=== PATIENT | male | born 1930 | race Caucasian/White ===

== ENCOUNTER 2017-04-25 11:16 | Inpatient (IN) ==
--- NOTE | 2017-04-25 12:35 | Emergency Department Report ---
Weakness HPI - General Chief complaint: Weakness Stated complaint: Weakness, dehydration, falls, no eating Time Seen by Provider: 04/25/17 12:10 Source: patient Mode of arrival: ambulatory Limitations: no limitations - History of Present Illness HPI Narrative: He presents to ER today for evaluation of generalized weakness. Has been having trouble with this for the last several days. Did see his PCP on and was diagnosed with a UTI. Was started on antibiotics which he has been taking. Has been weak at home and has had trouble getting around the house. Has fallen several times. Did get a chest xray, labs, and head CT on while at his PCP office. Is c/o right shoulder and elbow pain but did not have any imaging done . Has had a low grade temp at home and did vomit once this morning but otherwise has no other c/o. Uses a cane at home to get around. MD Complaint: generalized weakness Onset (ago): day(s) (3) Duration: constant Location: generalized Migration: none Severity: moderate Relieving factors: none Exacerbating factors: none Context: new medication Associated symptoms: fever/chills (low grade temp) - Related Data Home Medications Medication Instructions Recorded Confirmed Cyanocobalamin (Vitamin B-12) 1 tab PO DAILY #0 01/20/16 04/25/17 (Vitamin B-12) Glucosamine Sulfate Dipot Chlr 1,000 mg PO DAILY #0 01/20/16 04/25/17 [Glucosamine] Multivitamin [Multi-Day Vitamins] 1 tab PO DAILY #0 01/20/16 04/25/17 Phenytoin Sodium Extended 500 mg PO HS #0 01/20/16 04/25/17 Aspirin [Adult Low Dose Aspirin EC] 81 mg PO HS 04/25/17 04/25/17 Atorvastatin Calcium 20 mg PO DAILY 04/25/17 04/25/17 Calcium Carbonate 600 mg PO DAILY 04/25/17 04/25/17 Docusate Sodium [Stool Softener] 100 mg PO BID 04/25/17 04/25/17 Donepezil HCl [Aricept] 10 mg PO HS 04/25/17 04/25/17 Isosorbide Mononitrate ER [Imdur] 30 mg PO DAILY 04/25/17 04/25/17 Metoprolol Succinate 25 mg PO DAILY 04/25/17 04/25/17 Warfarin Sodium 9 mg PO SUWE 04/25/17 04/25/17 Warfarin Sodium 10 mg PO MOTUTHFRSA 04/25/17 04/25/17 cephALEXin [Cephalexin] 500 mg PO TID 04/25/17 04/25/17 Allergies Allergy/AdvReac Type Severity Reaction Status Date / Time No Known Drug Allergies Allergy Unknown Verified 04/25/17 11:31 Review of Systems Constitutional: Reports: fever (low grade), weakness ENT: Denies: ear pain, throat pain, congestion Cardiovascular: Denies: chest pain, palpitations, dyspnea on exertion Respiratory: Denies: cough, dyspnea, wheezes Gastrointestinal: Reports: vomiting. Denies: abdominal pain, nausea, diarrhea, constipation Integumentary: Denies: rash Neurological: Reports: weakness. 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 Syncope Yes Transient Ischemic Attacks ( Yes TIA) Cataracts Yes Dental Problems Yes Macular Degeneration Yes Angina Yes Coronary Artery Disease Yes Myocardial Infarction Yes Sleep Apnea Yes Ulcer Yes Hx Incontinence Yes Hx Urinary Tract Infection Yes Clotting Problems Yes Osteoarthritis Yes - Social History Smoking status: Never smoker Physical Exam - Limitations Limitations: no limitations - General General appearance: alert, in no apparent distress - Normal Exams: Neck:: Full range of motion, without adenopathy, JVD, bruits or thyromegaly Chest/Respirations:: Clear all banegas, with good airflow, and symmetry bilaterally Cardiovascular:: Regular rate and rhythm, without murmur or gallop, Pulses 2+ all extremities, capillary refill, <2 seconds all extremities Abdomen:: Bowel sounds positive, soft, non-tender, non-distended, no hepatosplenomegaly, masses or bruits noted Lymphatic:: No lymphadenopathy, or lymphedema noted Integumentary:: No rashes, hives, or bruising noted Neurological:: Patient is alert, and oriented Psychiatric:: Patient exhibits, appropriate attention, emotion and affect Course Vital Signs Temperature 98.5 F 04/25/17 11:20 Pulse Rate 88 04/25/17 11:20 Respiratory Rate 16 04/25/17 11:20 Blood Pressure 133/78 04/25/17 11:20 Pulse Oximetry 98 04/25/17 11:20 Temperature 98.7 F 04/25/17 13:04 Pulse Rate 87 04/25/17 13:04 Respiratory Rate 16 04/25/17 13:04 Blood Pressure 125/67 04/25/17 13:04 Pulse Oximetry 93 04/25/17 13:04 Weakness - MDM Narrative Medical decision making narrative: Labs and xrays today are all normal aside from INR of 3.77 which is trending down from when it was above 4. Did discuss this with patient and family. Family is concerned for his safety at home as he continues to fall and be weak. Did discuss this with Dr Fontanez and he will accept for admission at this time. - Differential Diagnosis Differential diagnosis: Likely: acute myocardial infarction, hypoglycemia, sepsis, dehydration (UTI) - Lab Data Attestation: I reviewed the patient's lab results. Result diagrams: 04/25/17 14:10 04/25/17 14:10 Lab Results 04/25/17 04/25/17 04/25/17 Range/Units 14:10 14:10 14:10 WBC 9.1 (4.5-11.0) T/MM3 RBC 3.99 L (4.50-5.90) M/MM3 Hgb 12.9 L (13.5-17.5) GM/DL Hct 38.8 L (41-53) % MCV 97.2 (80-100) UM3 MCH 32.3 (26-34) UUG MCHC 33.2 (31-37) GM/DL RDW Std Deviation 40.8 (36.9-50.2) FL Plt Count 218 (130-400) T/MM3 MPV 10.5 (9.4-12.4) UM3 Immature Gran % (Auto) 0.2 (0.0-0.5) % Neut % (Auto) 69.4 H (33-66) % Lymph % (Auto) 19.3 L (23-45) % [place] % (Auto) 10.7 H (0-9.0) % Eos % (Auto) 0.3 (0-4) % Baso % (Auto) 0.1 (0-2) % Neut # 6.3 (1.8-7.7) T/MM3 Lymph # 1.8 (1-4.8) T/MM3 [place] # 1.0 H (0-0.8) T/MM3 Eos # 0.0 (0-0.5) T/MM3 Baso # 0.0 (0-0.2) T/MM3 Abs Immat Gran (auto) 0.02 (0.00-0.03) T/MM3 INR 3.77 H (0.99-1.21) Turbidity < 20 (0-20) Sodium 142 (134-144) MEQ/L Potassium 3.5 L (3.6-5) MEQ/L Chloride 100 (98-107) MEQ/L Carbon Dioxide 31 H (22-30) MEQ/L Anion Gap 11 (5-15) MEQ/L BUN 13.0 (9-20) MG/DL Creatinine 0.8 (0.8-1.5) MG/DL GFR Calculation 92 BUN/Creatinine Ratio 16 (6-26) RATIO Glucose 123 H (75-110) MG/DL Calculated Osmolality 274 (261-280) MOSM/KG Calcium 8.8 (8.4-10.2) MG/DL Total Bilirubin 1.00 (0.20-1.30) MG/DL Icterus Index < 2 (0-7) AST 174 H (17-59) U/L ALT 96 H (21-72) U/L Alkaline Phosphatase 150 H (38-126) U/L Troponin I 0.033 (0-0.12) ng/ml Total Protein 6.9 (6.3-8.2) G/DL Albumin 3.9 (3.5-5.0) G/DL Globulin 3.0 (2.4-3.6) G/DL Albumin/Globulin Ratio 1.3 (1.1-2.2) RATIO Specimen Hemolysis < 15 (0-25) Ur Collection Type Urine Color (YELLOW) Urine Clarity Urine pH (5.0-8.0) Ur Specific [place] (1.015-1.025) Urine Protein (NEGATIVE) Urine Glucose (UA) (NEGATIVE) Urine Ketones (NEGATIVE) Urine Occult Blood (NEGATIVE) Urine Nitrate (NEGATIVE) Urine Bilirubin (NEGATIVE) Urine Urobilinogen (NORMAL) EU/DL Ur Leukocyte Esterase (NEGATIVE) Urine RBC (0-3) /HPF Urine WBC (0-5) /HPF Ur Squamous Epith Cells Urine Bacteria (NEGATIVE) Ur Culture Indicated? 04/25/17 Range/Units 14:32 WBC (4.5-11.0) T/MM3 RBC (4.50-5.90) M/MM3 Hgb (13.5-17.5) GM/DL Hct (41-53) % MCV (80-100) UM3 MCH (26-34) UUG MCHC (31-37) GM/DL RDW Std Deviation (36.9-50.2) FL Plt Count (130-400) T/MM3 MPV (9.4-12.4) UM3 Immature Gran % (Auto) (0.0-0.5) % Neut % (Auto) (33-66) % Lymph % (Auto) (23-45) % [place] % (Auto) (0-9.0) % Eos % (Auto) (0-4) % Baso % (Auto) (0-2) % Neut # (1.8-7.7) T/MM3 Lymph # (1-4.8) T/MM3 [place] # (0-0.8) T/MM3 Eos # (0-0.5) T/MM3 Baso # (0-0.2) T/MM3 Abs Immat Gran (auto) (0.00-0.03) T/MM3 INR (0.99-1.21) Turbidity (0-20) Sodium (134-144) MEQ/L Potassium (3.6-5) MEQ/L Chloride (98-107) MEQ/L Carbon Dioxide (22-30) MEQ/L Anion Gap (5-15) MEQ/L BUN (9-20) MG/DL Creatinine (0.8-1.5) MG/DL GFR Calculation BUN/Creatinine Ratio (6-26) RATIO Glucose (75-110) MG/DL Calculated Osmolality (261-280) MOSM/KG Calcium (8.4-10.2) MG/DL Total Bilirubin (0.20-1.30) MG/DL Icterus Index (0-7) AST (17-59) U/L ALT (21-72) U/L Alkaline Phosphatase (38-126) U/L Troponin I (0-0.12) ng/ml Total Protein (6.3-8.2) G/DL Albumin (3.5-5.0) G/DL Globulin (2.4-3.6) G/DL Albumin/Globulin Ratio (1.1-2.2) RATIO Specimen Hemolysis (0-25) Ur Collection Type Urine, clean catch Urine Color [place] (YELLOW) Urine Clarity Sl cloudy Urine pH 5.0 (5.0-8.0) Ur Specific [place] 1.020 (1.015-1.025) Urine Protein 2+ A (NEGATIVE) Urine Glucose (UA) Negative (NEGATIVE) Urine Ketones Negative (NEGATIVE) Urine Occult Blood 3+ A (NEGATIVE) Urine Nitrate Negative (NEGATIVE) Urine Bilirubin 1+ A (NEGATIVE) Urine Urobilinogen 2.0 (NORMAL) EU/DL Ur Leukocyte Esterase Trace A (NEGATIVE) Urine RBC 1-3 (0-3) /HPF Urine WBC 10-20 H (0-5) /HPF Ur Squamous Epith Cells 0-5 Urine Bacteria 1+ H (NEGATIVE) Ur Culture Indicated? Cult not indicated - Radiology Data Attestation: I reviewed the patient's radiology results. Right shoulder: no acute bony abnormality Right elbow: no acute bony abnormality Chest xray: No acute cardiopulmonary process Disposition Clinical Impression: Weakness Urinary tract infection Qualifiers: Urinary tract infection type: acute cystitis Hematuria presence: without hematuria Qualified Code(s): N30.00 - Acute cystitis without hematuria Disposition: 02 To OBS [facility] Condition: Stable Prescriptions: No Action Phenytoin Sodium Extended 500 mg PO HS #0 Multivitamin [Multi-Day Vitamins] 1 tab PO DAILY #0 Glucosamine Sulfate Dipot Chlr [Glucosamine] 1,000 mg PO DAILY #0 Cyanocobalamin (Vitamin B-12) (Vitamin B-12) 1 tab PO DAILY #0 Aspirin [Adult Low Dose Aspirin EC] 81 mg PO HS Docusate Sodium [Stool Softener] 100 mg PO BID Atorvastatin Calcium 20 mg PO DAILY cephALEXin [Cephalexin] 500 mg PO TID Metoprolol Succinate 25 mg PO DAILY Donepezil HCl [Aricept] 10 mg PO HS Warfarin Sodium 9 mg PO SUWE Calcium Carbonate 600 mg PO DAILY Isosorbide Mononitrate ER [Imdur] 30 mg PO DAILY Warfarin Sodium 10 mg PO NICOLASAUTHFR Referrals: Trinidad Solitario DO [Family Provider] - Time of Disposition: 15:23 - Seen By: midlevel
[2017-04-25] MEDS ORDERED: CEFTRIAXONE 1,000 MG in D5W 25 ML IV SCH (16:00)
[2017-04-25] MEDS ORDERED: HYDROCODONE/APAP 5mg/325mg TABLET PO ONE (16:48)
--- NOTE | 2017-04-25 18:29 | History & Physical Report ---
History of Present Illness Date: 04/25/17 Chief complaint: Fall at home with head and R arm trauma. HPI: at bedside gave most of the history. Pt has been getting weaker and weaker gradually and has had several episodes of fall, that have increased in frequency the last 3 days. Pt was found to have a UTI recently and was getting PO antibiotics but his weakness got worse. Today he had a fall with head trauma (No LOC) and also R arm trauma. 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 states he has H.O TIA's and has been on Warfarin, last 3 INR were all high, attributted to the antibiotics. He states he has severe R arm pain (can't move it) he is immobilized. X rays did not show an obvious fracture. CT brain - no bleed. Pt was admitted for treatment - to avoid falls at home and will probably need rehab. he is awake alert, oriented x 3 coherent well perfused. Review of Systems - Constitutional Constitutional: Present: anorexia, fatigue, malaise - EENMT Eyes: Present: other Ears: Present: as per HPI (Eye - Scarred L eye - Balance not tested. Gait not tested. ) - Cardiovascular Cardiovascular: Present: edema, heart murmur. Absent: chest pain, palpitations , syncope, orthopnea Vascular: Present: pedal edema - Respiratory Respiratory: Present: as per HPI - Gastrointestinal Gastrointestinal: Present: as per HPI - Genitourinary Genitourinary: Present: as per HPI - Musculoskeletal Musculoskeletal: Present: as per HPI - Integumentary/Breasts Integumentary: Present: as per HPI. Absent: rash - Neurological Neurological: Present: abnormal gait Neurological Comments: Unsteady gait with increased falls recently. 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 - Social History Smoking status: Former smoker Substance use type: does not use Alcohol intake frequency: does not drink Current occupational exposures/hazards: No Does patient use chewing tobacco?: No Current residence: Apartment/Private Home (With his .) Medications Home Medications Medication Instructions Recorded Confirmed Type Cyanocobalamin (Vitamin B-12) 1 tab PO DAILY #0 01/20/16 04/25/17 History (Vitamin B-12) Glucosamine Sulfate Dipot Chlr 1,000 mg PO DAILY #0 01/20/16 04/25/17 History [Glucosamine] Multivitamin [Multi-Day Vitamins] 1 tab PO DAILY #0 01/20/16 04/25/17 History Phenytoin Sodium Extended 500 mg PO HS #0 01/20/16 04/25/17 History Aspirin [Adult Low Dose Aspirin EC] 81 mg PO HS 04/25/17 04/25/17 History Atorvastatin Calcium 20 mg PO DAILY 04/25/17 04/25/17 History Calcium Carbonate 600 mg PO DAILY 04/25/17 04/25/17 History Docusate Sodium [Stool Softener] 100 mg PO BID 04/25/17 04/25/17 History Donepezil HCl [Aricept] 10 mg PO HS 04/25/17 04/25/17 History Isosorbide Mononitrate ER [Imdur] 30 mg PO DAILY 04/25/17 04/25/17 History Metoprolol Succinate 25 mg PO DAILY 04/25/17 04/25/17 History Warfarin Sodium 9 mg PO SUWE 04/25/17 04/25/17 History Warfarin Sodium 10 mg PO MOTUTHFRSA 04/25/17 04/25/17 History cephALEXin [Cephalexin] 500 mg PO TID 04/25/17 04/25/17 History Allergies Allergy/AdvReac Type Severity Reaction Status Date / Time No Known Drug Allergies Allergy Unknown Verified 04/25/17 11:31 Exam Vital Signs: Temp Pulse Resp BP Pulse Ox 98.7 F 73 18 135/66 96 04/25/17 17:27 04/25/17 17:40 04/25/17 17:40 04/25/17 17:40 04/25/17 17:40 Telemetry Rhythm: Sinus Rhythm Height: 5 ft 9 in Weight: 100.8 kg Body Mass Index: 32.8 - Constitutional Present: mild distress, obese Comments: Due to pain - Routine Neck Exam Present: supple. Absent: JVD, carotid bruit - Routine Respiratory Exam Present: CTA bilaterally. Absent: accessory muscle use - Routine Cardiovascular Exam Present: RRR, murmur Comments: Systolic murmur at the aortic foci. - Routine Abdominal Exam Present: soft, non distended, non tender - Routine Extremities Exam Present: edema. Absent: cyanosis, clubbing - Routine Neurological Exam Present: alert, oriented X3 - Routine Psychiatric Exam Present: normal affect, cooperative Results - Labs CBC & Chem 7: 04/25/17 14:10 04/25/17 14:10 Assessment and Plan Assessment and Plan: Mr Zepeda is a 86 YO male with H.O Inoperable CAD, weakness with recurrent falls that have increased over the last week. He has had many falls and is at risk of a fracture. His head CT showed no bleed. Pt is Coagulopathic so will hold his warfarin for now. Will place pt on fall precautions for now. Do neurochecks Qshift. Will be rechecking his R arm, at this time he has pain but distal motor function and perfussion is preserved. He can tolerate passive motion of his elbow and his shoulder. Diagnosis 1) Global weakness, due multiple co-morbidities, including inoperable CAD ( Unknown LVEF at this time) and now UTI. - Will change antibiotic to IV Rocephin which has better coverage for UTI. Pt has no symptoms suggestive of bacteremia or sepsis. - Keep pt on telemetry - Fall precautions - Neurochecks Q8H x 3 - May need Ortho evaluation Thursday for his R arm. 2) Coagulopathy, in a pt that takes Warfarin for recurrent TIA's. - Check INR in the AM - Continue holding warfarin. 3) Seizure dissorder ? Not sure why pt is on Dilantin, but high levels would increase falls, so will check a level. 4) H/O CAD - INOPERABLE. - Continue BB, ASA, Imdur. 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 6) H/O Dementia. - Will check basic workup for dementia. 7) Code status - PT IS FULL CODE. Sepsis Assessment - Evaluation Sepsis screening result: No Definite Risk Hospital Course Summary Disclaimer: The visit summary below is not to be considered part of the above Progress Note.
[2017-04-25] MEDS ORDERED: ATORVASTATIN 20 MG TABLET PO SCH (18:30)
[2017-04-25] MEDS: CEFTRIAXONE 1 G in NS 100 ML IV SCH (18:57)
[2017-04-25] MEDS: ISOSORBIDE MONONITRATE ER 30 MG TABLET PO SCH (19:21)
[2017-04-25] MEDS: CALCIUM CARBONATE 600 MG TABLET PO SCH (19:23)
[2017-04-25] MEDS: DOCUSATE SODIUM 100 MG CAPSULE PO SCH (21:14)
[2017-04-25] MEDS: PHENYTOIN 100 MG CAPSULE PO SCH (21:14)
[2017-04-25] MEDS: DONEPEZIL 10 MG TABLET PO SCH (21:14)
[2017-04-25] MEDS: HYDROCODONE/APAP 10 MG/325 MG TABLET PO PRN (21:14)
[2017-04-25] MEDS: ASPIRIN *EC* 81 MG TABLET PO SCH (21:14)
[2017-04-26] MEDS: HYDROCODONE/APAP 10 MG/325 MG TABLET PO PRN ×4 (01:12→20:37)
[2017-04-26] MEDS: HYDROMORPHONE 2 MG/ML INJECTION IVP PRN ×4 (03:09→23:50)
[2017-04-26] MEDS: SALINE FLUSH 10ml SYRINGE IVF PRN ×2 (04:46→23:58)
[2017-04-26] MEDS: DOCUSATE SODIUM 100 MG CAPSULE PO SCH ×2 (09:18→20:36)
[2017-04-26] MEDS: ISOSORBIDE MONONITRATE ER 30 MG TABLET PO SCH (09:18)
[2017-04-26] MEDS: CALCIUM CARBONATE 600 MG TABLET PO SCH (09:18)
[2017-04-26] MEDS: MULTI-VITAMIN PLAIN TABLET PO SCH (09:18)
[2017-04-26] MEDS: METOPROLOL SUCCINATE (XL) 25mg TABLET PO SCH (09:18)
--- NOTE | 2017-04-26 09:31 | XRay Report ---
INDICATION: dyspnea PROCEDURE: CHEST 2-VIEWS UPRIGHT (PA & LAT) Encounter: Initial COMPARISON: March 27, 2009 FINDINGS: The lungs are clear without evidence of focal abnormal airspace opacity. There is no pleural effusion or pneumothorax. The heart size, mediastinal contours and pulmonary vascularity are within normal limits. There is no significant skeletal abnormality. IMPRESSION: No acute cardiopulmonary disease. .
--- NOTE | 2017-04-26 09:43 | XRay Report ---
Indication: right shoulder pain after falls today PROCEDURE: XR shoulder RT 2-3 views: Encounter: Initial Comparison: None Findings: There is no acute fracture, dislocation or malalignment identified. Impression: No acute osseous abnormality. .
--- NOTE | 2017-04-26 09:44 | XRay Report ---
Indication: right elbow pain after falls today PROCEDURE: XR elbow RT min 3V: Encounter: Initial Comparison: None Findings: There is no acute fracture, dislocation or malalignment identified. Poor visualization of the radial head on the lateral views. Impression: No acute osseous abnormality. .
--- NOTE | 2017-04-26 12:01 | Progress Note ---
Subjective: Pt states he is feeling well except for pain on his R arm. he is able to tolerate passive ROM on his elbow and less on his shoulder. he is very tender on palpation of the shoulder. Has H.O Rotator cuff tear on the L side. No new falls reported. Objective Vital signs: Temp Pulse Resp BP Pulse Ox 97.5 F 86 18 132/66 95 04/26/17 07:54 04/26/17 10:20 04/26/17 07:54 04/26/17 10:20 04/26/17 07:54 Rhythm: Normal Sinus Rhythm Weight: 101.5 kg - Constitutional Present: mild distress, obese - Routine HEENT Exam Head: Present: normocephalic Comments: Pt has lost his L eye to "Spinal meningitis" at age 7. He has evidence of trauma on his scalp. Oral mucosas moist. - Routine Respiratory Exam Present: CTA bilaterally - Routine Cardiovascular Exam Present: RRR - Routine Abdominal Exam Present: soft, non distended, non tender - Routine Extremities Exam Present: edema. Absent: cyanosis, clubbing - Routine Musculoskeletal Exam Musculoskeletal: no clubbing or cyanosis - Routine Neurological Exam Present: alert, oriented X3, moving all extremities - Routine Psychiatric Exam Present: normal affect, cooperative Results - Labs CBC & Chem 7: 04/26/17 04:59 04/26/17 04:59 Assessment and Plan Assessment and Plan: Mr Zepeda is a 86 YO male with H.O Inoperable CAD, weakness with recurrent falls that have increased over the last week. He has had many falls and is at risk of a fracture. He was admitted for this on 04/25. His head CT (No contrast) showed no bleed. Pt is Coagulopathic so will hold his warfarin for now. Will continue pt on fall precautions for now. He has pain on his R arm proximally - distal motor function and perfussion is preserved. He can tolerate passive motion of his elbow and his shoulder. Pain has decreased a bit since yesterday. Diagnosis 1) Global weakness, due multiple co-morbidities, including inoperable CAD ( Unknown LVEF at this time) + UTI. - WBC is normal, pt has no fever. - Blood and urine cultures are all pending. - Continue with Rocephin day # 2 - Keep pt on telemetry - having episodes of tachycardia. - Continue with fall precautions - May need Ortho evaluation Thursday for his R arm. 2) Coagulopathy, in a pt that takes Warfarin for recurrent TIA's. - Will check INR today at 14:00 - Continue holding warfarin. 3) No H/O Seizure dissorder ? Not sure why pt is on Dilantin, his level was 11.1 (04/26) - No toxicity. 4) H/O CAD - INOPERABLE. - Continue BB, ASA, Imdur. 5) H/O Dementia. - Will check TSH, B12, RPR, Ammonia. 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 7) Code status - PT IS FULL CODE. Sepsis Assessment - Evaluation Sepsis screening result: No Definite Risk Hospital Course Summary Disclaimer: The visit summary below is not to be considered part of the above Progress Note. Hospital Course: 04/26/17 12:14 Mr Zepeda is a 86 YO male with H.O Inoperable CAD, weakness with recurrent falls that have increased over the last week. He has had many falls and is at risk of a fracture. He was admitted for this on 04/25. His head CT (No contrast) showed no bleed. Pt is Coagulopathic so will hold his warfarin for now. Will continue pt on fall precautions for now. He has pain on his R arm proximally - distal motor function and perfussion is preserved. He can tolerate passive motion of his elbow and his shoulder. Pain has decreased a bit since yesterday. Plan is to have PT/OT evaluate him for a transfer eariler this coming week.
[2017-04-26] MEDS: CEFTRIAXONE 1 G in NS 100 ML IV SCH (17:33)
[2017-04-26] MEDS: ASPIRIN *EC* 81 MG TABLET PO SCH ×2 (20:36→21:36)
[2017-04-26] MEDS: PHENYTOIN 100 MG CAPSULE PO SCH ×2 (20:37→21:36)
[2017-04-26] MEDS: ATORVASTATIN 20 MG TABLET PO SCH ×2 (20:37→21:36)
[2017-04-26] MEDS: DONEPEZIL 10 MG TABLET PO SCH ×2 (20:38→21:35)
[2017-04-27] MEDS: HYDROCODONE/APAP 10 MG/325 MG TABLET PO PRN ×5 (01:00→23:21)
--- NOTE | 2017-04-27 10:22 | Orthopedic Consult Note ---
Orthopedic Consultation HPI - Consultation Info Consult Date: 04/27/17 Attending Physician: Virginia Kate MD. Consult Reason: joint pain (Right shoulder) - HPI Elements right lateral shoulder Injury: Yes (04/25/17 fall on right side) Pain: sharp Onset: sudden Radiating: No Severity: moderate Duration: several days How Often Does Pain Occur: constant Previous Surgery: No Previous Injury: No Aggrevated by: all activity Associated Symptoms: difficulties dressing, weakness, no chills, no warmth, no numbness Treatments Tried: rest, immobilization, pain medications X-ray Findings: Other (no acute injury to right shoulder or elbow. Poor visulization of radial head noted. AC DJD noted.) Recommendation: other (sling for comfort. Corticosteroid injection for pain control. The patient is not a surgical canidate. If pain continues CT scans may be helpful to R/O occult fx.) - History of Present Illness This is a pleasant 86 year old male who is admitted for progressive weakness over the last week and subsequent multiple falls. He was found to have a UTI and had been started on PO antibiotics. INR on admit was 3.77, presently 2.10. 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 He has also recently had a heart cath and was found to have multi vessel disease but was told that "he was not a surgical candidate". He did hit his head with his fall. CT of his head was negative for a bleed. Today his pain is located generally over the right shoulder. It is more point specific over the AC joint and lateral acromial border. Any movement causes him pain. Sling immobilization gives him some relief. He denies previous right shoulder surgery. He denies peripheral numbness or tingling. He feels he has no strength in the shoulder. 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 - Social History Smoking status: Former smoker Does patient use chewing tobacco?: No Current residence: Apartment/Private Home (With his .) Medications Home Medications Medication Instructions Recorded Confirmed Type Cyanocobalamin (Vitamin B-12) 1 tab PO DAILY #0 01/20/16 04/25/17 History (Vitamin B-12) Glucosamine Sulfate Dipot Chlr 1,000 mg PO DAILY #0 01/20/16 04/25/17 History [Glucosamine] Multivitamin [Multi-Day Vitamins] 1 tab PO DAILY #0 01/20/16 04/25/17 History Phenytoin Sodium Extended 500 mg PO HS #0 01/20/16 04/25/17 History Aspirin [Adult Low Dose Aspirin EC] 81 mg PO HS 04/25/17 04/25/17 History Atorvastatin Calcium 20 mg PO DAILY 04/25/17 04/25/17 History Calcium Carbonate 600 mg PO DAILY 04/25/17 04/25/17 History Docusate Sodium [Stool Softener] 100 mg PO BID 04/25/17 04/25/17 History Donepezil HCl [Aricept] 10 mg PO HS 04/25/17 04/25/17 History Isosorbide Mononitrate ER [Imdur] 30 mg PO DAILY 04/25/17 04/25/17 History Metoprolol Succinate 25 mg PO DAILY 04/25/17 04/25/17 History Warfarin Sodium 9 mg PO SUWE 04/25/17 04/25/17 History Warfarin Sodium 10 mg PO MOTUTHFRSA 04/25/17 04/25/17 History cephALEXin [Cephalexin] 500 mg PO TID 04/25/17 04/25/17 History Allergies Allergy/AdvReac Type Severity Reaction Status Date / Time No Known Drug Allergies Allergy Unknown Verified 04/25/17 19:24 Orthopedic Exam Vital signs: Temp Pulse Resp BP Pulse Ox 99.8 F 95 18 115/56 93 04/26/17 23:36 04/26/17 23:36 04/26/17 23:36 04/26/17 23:36 04/26/17 23:36 - Constitutional General Appearance: Present: alert, orientated x3 - Respiratory Exam Present: non-labored - Cardiovascular Exam Present: pedal pulses intact Capillary Refill: < 2-3 Seconds - Abdominal Exam Present: soft - Extremities Exam Present: edema, pulses intact. Absent: cyanosis, clubbing - Detailed Upper Extremity Exam Shoulder/Upper Arm: Right swelling (piano bruno sign), Right tenderness (AC joint) , Right decreased ROM (very limited AROM 20, 20 FF and AB), Right pain with active ROM, Right pain with passive ROM (but better motion than active), Right tenderness over the bicipital tendon, Right impingement sign present Elbow: Right swelling, Right tenderness, Right decreased ROM Forearm: Right normal inspection Wrist: Right normal inspection Hand/Fingers: Right normal inspection - Integumentary Exam Present: pink, warm, dry, intact, bruising (lateral arm) - Lymphatic Lymphatic: Absent: lymphedema - Neurological Exam Present: intact to light touch, no deficits - Psychiatric Exam Present: alert, oriented - Labs Result Diagrams: 04/26/17 04:59 04/26/17 04:59 Abnormal lab results 04/26/17 04/26/17 04/27/17 Range/Units 14:23 19:21 08:42 INR 2.10 H 2.10 H (0.90-1.23) Ammonia < 9 L (9-33) UMOL/L H & H 04/26/17 Range/Units 04:59 Hgb 13.0 L (13.5-17.5) GM/DL Hct 38.2 L (41-53) % Coagulation 04/26/17 04/26/17 Range/Units 14:23 19:21 INR 2.10 H 2.10 H (0.90-1.23) - Diagnostic results Shoulder x-ray: report reviewed, image reviewed Elbow x-ray: report reviewed, image reviewed Impression and Recommendation (1) Sprain of acromioclavicular ligament of right shoulder Current visit: Yes Status: Acute sling immobilization. May consider PT at 2-3 weeks post injury for passive motion. (2) Complete tear of rotator cuff Current visit: Yes Status: Acute The patient is not a surgical candidate. Therefore, no need for MRI. sling immobilization and narcotics for pain control. subacromial corticosteriod injection may be helpful for pain. Likely, also has effusion secondary to fall and supra thearapeutic INR. Hospital Course Summary Disclaimer: The visit summary below is not to be considered part of the above Progress Note. Hospital Course: 04/26/17 12:14 Mr Zepeda is a 86 YO male with H.O Inoperable CAD, weakness with recurrent falls that have increased over the last week. He has had many falls and is at risk of a fracture. He was admitted for this on 04/25. His head CT (No contrast) showed no bleed. Pt is Coagulopathic so will hold his warfarin for now. Will continue pt on fall precautions for now. He has pain on his R arm proximally - distal motor function and perfussion is preserved. He can tolerate passive motion of his elbow and his shoulder. Pain has decreased a bit since yesterday. Plan is to have PT/OT evaluate him for a transfer eariler this coming week.
[2017-04-27] MEDS: DOCUSATE SODIUM 100 MG CAPSULE PO SCH ×2 (10:23→21:17)
[2017-04-27] MEDS: METOPROLOL SUCCINATE (XL) 25mg TABLET PO SCH (10:23)
[2017-04-27] MEDS: MULTI-VITAMIN PLAIN TABLET PO SCH (10:23)
[2017-04-27] MEDS: CALCIUM CARBONATE 600 MG TABLET PO SCH (10:23)
[2017-04-27] MEDS: ISOSORBIDE MONONITRATE ER 30 MG TABLET PO SCH (10:23)
[2017-04-27] MEDS ORDERED: BUPIVACAINE 0.5% (5mg/ml) PF 30ml INJ SDV INJ ONE (10:49)
[2017-04-27] MEDS ORDERED: LIDOCAINE 1% (10mg/ml) 30ml SDV INJ INJ ONE (10:49)
[2017-04-27] MEDS ORDERED: BETAMETHASONE 30 MG/5 ML INJECTION IM ONE (10:49)
--- NOTE | 2017-04-27 10:55 | Progress Note ---
Subjective: Pt states he is feeling fine, still with a lot of pain on his R shoulder and elbow. On palpation yesterday was very tender anteriorly at the shoulder. Otherwise he has no fever, chills, SOB, CP. He has been eating fairly well. He remains afebrile and hemodinamically stable. Objective Vital signs: Temp Pulse Resp BP Pulse Ox 99.8 F 95 18 115/56 93 04/26/17 23:36 04/26/17 23:36 04/26/17 23:36 04/26/17 23:36 04/26/17 23:36 Rhythm: Normal Sinus Rhythm Weight: 101.5 kg - Constitutional Present: mild distress, obese - Routine HEENT Exam Head: Present: normocephalic Comments: Pt had several falls with head trauma and has 2 small bruises on his frontal and R parietal area. - Routine Respiratory Exam Present: CTA bilaterally - Routine Cardiovascular Exam Present: irregular rhythm - Routine Abdominal Exam Present: soft, non distended, non tender - Routine Extremities Exam Comments: Limited ROM on the R shoulder and the R elbow. Pt has a sling. Ortho was consulted and pt will be getting a steroid injection later today (discussed with Dr Kate) - Routine Neurological Exam Present: alert, oriented X3 Extremely weak so gait was not tested. - Routine Psychiatric Exam Present: normal affect Results - Labs CBC & Chem 7: 04/26/17 04:59 04/26/17 04:59 Assessment and Plan Assessment and Plan: Mr Zepeda is a 86 YO male with H.O Inoperable CAD, weakness with recurrent falls that have increased over the last week. He has had many falls and is at risk of a fracture. He was admitted on 04/25 after a new fall, followed by severe R shoulder and elbow pain. He was also found to have a UTI. His head CT ( No contrast) showed no bleed. Pt was Coagulopathic on admission so his warfarin was held. INR was 2.10 yesterday, and will check a new one today. Ortho was consulted today (Dr Kate) per the ortho note, pt appears to have a rotator cuff tear on the R shoulder. Diagnosis 1) S/P FALL WITH R ARM TRAUMA - Global weakness, due multiple co-morbidities, including inoperable CAD (Unknown LVEF at this time) + UTI a) H.O L rotator cuff tear with possible new R rotator cuff tear + Acromioclavicular ligament lesion. - per Ortho pt will get a steroid shot today. - WBC is normal, pt has no fever. - Blood and urine cultures remain negative at 36+ hrs (Spoke with lab). - Rocephin day # 3 for UTI. - Continue with fall precautions. PT evaluation today. 2) Coagulopathy, improving (Warfarin for recurrent TIA's) - Will check INR now 3) H/O CAD - INOPERABLE. - Continue BB, ASA, Imdur. 4) H/O Dementia. - Will check TSH, B12, RPR, Ammonia. 5) No H/O Seizure dissorder ? Not sure why pt is on Dilantin, his level was 11.1 (04/26) - No toxicity, blood level is normal. 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 7) Code status - PT IS FULL CODE. PENDING LABS AMMONIA B12 CORTISOL PSA RPR TESTOSTERONE Sepsis Assessment - Evaluation Sepsis screening result: No Definite Risk Hospital Course Summary Disclaimer: The visit summary below is not to be considered part of the above Progress Note. Hospital Course: 04/26/17 12:14 Mr Zepeda is a 86 YO male with H.O Inoperable CAD, weakness with recurrent falls that have increased over the last week. He has had many falls and is at risk of a fracture. He was admitted for this on 04/25. His head CT (No contrast) showed no bleed. Pt is Coagulopathic so will hold his warfarin for now. Will continue pt on fall precautions for now. He has pain on his R arm proximally - distal motor function and perfussion is preserved. He can tolerate passive motion of his elbow and his shoulder. Plan is to have PT /OT evaluate him for a transfer eariler this coming week. 04/27/17 11:16 Remains stable, pt evaluated by Ortho possible new R sided rotator cuff tear - will be getting a steroid shot for this.
[2017-04-27] MEDS: HYDROMORPHONE 2 MG/ML INJECTION IVP PRN (16:15)
[2017-04-27] MEDS: SALINE FLUSH 10ml SYRINGE IVF PRN (16:20)
[2017-04-27] MEDS ORDERED: NS FLUSH BAG 500ml IV PRN (20:49)
[2017-04-27] MEDS: CEFTRIAXONE 1 G in NS 100 ML IV SCH (21:00)
[2017-04-27] MEDS: ASPIRIN *EC* 81 MG TABLET PO SCH (21:16)
[2017-04-27] MEDS: PHENYTOIN 100 MG CAPSULE PO SCH (21:16)
[2017-04-27] MEDS: ATORVASTATIN 20 MG TABLET PO SCH (21:17)
[2017-04-27] MEDS: DONEPEZIL 10 MG TABLET PO SCH (21:17)
[2017-04-28] MEDS: HYDROMORPHONE 2 MG/ML INJECTION IVP PRN (01:58)
[2017-04-28] MEDS: DOCUSATE SODIUM 100 MG CAPSULE PO SCH (09:06)
[2017-04-28] MEDS: MULTI-VITAMIN PLAIN TABLET PO SCH (09:06)
[2017-04-28] MEDS: CALCIUM CARBONATE 600 MG TABLET PO SCH (09:06)
[2017-04-28] MEDS: METOPROLOL SUCCINATE (XL) 25mg TABLET PO SCH (09:06)
[2017-04-28] MEDS: ISOSORBIDE MONONITRATE ER 30 MG TABLET PO SCH (09:06)
[2017-04-28] MEDS: HYDROCODONE/APAP 10 MG/325 MG TABLET PO PRN ×2 (09:10→13:17)
[2017-04-28] MEDS: SALINE FLUSH 10ml SYRINGE IVF PRN (09:11)
--- NOTE | 2017-04-28 11:13 | Progress Note ---
Subjective: F/U: Fall, Right arm weakness/pain, R rotator cuff tear, Gen weakness Doing about the same-right arm still very painful. Pain worse with movement. Difficult to be ambulatory due to pain to shoulder. Also, has chronic left rotator cuff tear-present for about 6 months. Appetite poor-very picky eater and hard to find foods to his liking. Denies nausea or ab pain. Feels stools stable. Breathing well. No chest pain. Daughter at bedside, case discussed with her. Objective Vital signs: Temperature 100.1 F 04/28/17 07:51 Pulse Rate 82 04/28/17 07:51 Respiratory Rate 20 04/28/17 07:51 Blood Pressure 130/62 04/28/17 07:51 Pulse Oximetry 92 04/28/17 07:51 Oxygen Delivery Method Room Air Height: 1.75 m Weight: 101.5 kg Body Mass Index: 33.0 - Routine HEENT Exam Head: Present: normocephalic Eye: Present: EOMI, PERRL. Absent: conjunctival icterus ENT: Present: mucous membranes dry - Routine Respiratory Exam Present: CTA bilaterally. Absent: accessory muscle use, rhonchi, wheezes - Routine Cardiovascular Exam Present: RRR - Routine Abdominal Exam Present: soft, normoactive bowel sounds. Absent: non distended, non tender - Routine Extremities Exam Present: no edema. Absent: cyanosis, clubbing, full ROM (Decreased ROM of bilateral shoulders.) - Routine Musculoskeletal Exam Musculoskeletal: Present: limited range of motion (Right shoulder-in sling currently) - Routine Skin Exam Present: intact, dry, warm. Absent: mottling - Routine Neurological Exam Present: alert, CN II-XII intact, motor deficit, vision grossly intact, hearing grossly intact - Routine Psychiatric Exam Present: normal affect, normal thought process. Absent: anxious, agitated Results - Labs CBC & Chem 7: 04/26/17 04:59 04/26/17 04:59 Assessment and Plan (1) Complete rotator cuff tear or rupture of right shoulder, not specified as traumatic Current visit: Yes Status: Acute (2) Sprain of acromioclavicular ligament of right shoulder Current visit: Yes Status: Acute (3) Urinary tract infection Current visit: Yes Status: Acute (4) Weakness Current visit: Yes Status: Acute (5) Status post fall Current visit: Yes Status: Acute (6) Hypokalemia Problem details: POA Current visit: Yes Status: Acute (7) CAD (coronary artery disease) Current visit: Yes Status: Chronic (8) Dyslipidemia Current visit: Yes Status: Chronic (9) Anticoagulated on Coumadin Current visit: Yes Status: Chronic (10) Dementia Current visit: Yes Status: Chronic (11) Seizure disorder Current visit: Yes Status: Chronic (12) Osteoarthritis Current visit: Yes Status: Chronic DVT Prophylaxis: Coumadin Resuscitation Status: Full Code Assessment and Plan: Will check CMP due to hypokalemia and elevated LFT. CBC due to Resolving UTI. Check INR due to Coumadin use. Continue to work on pain control. Possible shoulder injection by ortho to help pain. Coumadin on hold-INR was therapeutic yesterday. Continue Therapy to maximize functional status. Will continue Rocephin for urinary coverage - likely could stop in near future. Encourage oral intake. Likely discharge to IRU today for continuation of therapy and pain control. Case discussed with CM and pt's daughter. Time spent with pt care 25 minutes. Sepsis Assessment - Evaluation Sepsis screening result: No Definite Risk Hospital Course Summary Disclaimer: The visit summary below is not to be considered part of the above Progress Note. Hospital Course: 04/26/17 12:14 Mr Zepeda is a 86 YO male with H.O Inoperable CAD, weakness with recurrent falls that have increased over the last week. He has had many falls and is at risk of a fracture. He was admitted for this on 04/25. His head CT (No contrast) showed no bleed. Pt is Coagulopathic so will hold his warfarin for now. Will continue pt on fall precautions for now. He has pain on his R arm proximally - distal motor function and perfussion is preserved. He can tolerate passive motion of his elbow and his shoulder. Plan is to have PT /OT evaluate him for a transfer eariler this coming week. 04/27/17 11:16 Remains stable, pt evaluated by Ortho possible new R sided rotator cuff tear - will be getting a steroid shot for this. 04/28/17 11:21 Will check CMP due to hypokalemia and elevated LFT. CBC due to Resolving UTI. Check INR due to Coumadin use. Continue to work on pain control. Possible shoulder injection by ortho to help pain. Coumadin on hold-INR was therapeutic yesterday. Continue Therapy to maximize functional status. Will continue Rocephin for urinary coverage - likely could stop in near future. Encourage oral intake. Likely discharge to IRU today for continuation of therapy and pain control.
--- NOTE | 2017-04-28 19:32 | Discharge Summary ---
Discharge Information Date of admission: 04/25/17 16:39 Anticipated date of discharge: 04/28/17 Attending Physician: Nicholas Grimes MD Primary care physician: Trinidad Solitario DO Consults: 04/27/17 08:21 Physician Consult [CONS] Routine Consulting Provider: Kar Kate Reason For Exam: R arm pain (specially shoulder) Ordering Provider has Notified Yard Stocker: No Comment: Will be calling soon 04/28/17 IRU Screening [Inpatient Rehab Screening] [CONS] Routine IRU Screening [Inpatient Rehab Screening] [CONS] Routine - Discharge Diagnosis (1) Complete rotator cuff tear or rupture of right shoulder, not specified as traumatic Status: Acute (2) Sprain of acromioclavicular ligament of right shoulder Status: Acute (3) Urinary tract infection Qualifiers: Urinary tract infection type: acute cystitis Hematuria presence: without hematuria Qualified Code(s): N30.00 - Acute cystitis without hematuria Status: Acute (4) Weakness Status: Acute (5) Status post fall Status: Acute (6) Hypokalemia Problem Details: POA Status: Acute (7) CAD (coronary artery disease) Qualifiers: Coronary Disease-Associated Artery/Lesion type: [place] artery [place] vs. transplanted heart: [place] heart Associated angina: without angina Qualified Code(s): I25.10 - Atherosclerotic heart disease of [place] coronary artery without angina pectoris Status: Chronic (8) Dyslipidemia Status: Chronic (9) Anticoagulated on Coumadin Status: Chronic (10) Dementia Qualifiers: Dementia type: unspecified type Dementia behavioral disturbance: without behavioral disturbance Qualified Code(s): F03.90 - Unspecified dementia without behavioral disturbance Status: Chronic (11) Seizure disorder Status: Chronic (12) Osteoarthritis Qualifiers: Osteoarthritis location: multiple joints Osteoarthritis type: primary Qualified Code(s): M15.0 - Primary generalized (osteo)arthritis Status: Chronic - Laboratory Labs: 04/28/17 10:57 04/28/17 10:57 - Microbiology Microbiology 04/25/17 16:53 Peripheral/Iv Start Blood Culture - Preliminary No Growth After 3 Days 04/25/17 17:00 Peripheral/Iv Start Blood Culture - Preliminary No Growth After 3 Days History of Present Illness HPI: at bedside gave most of the history. Pt has been getting weaker and weaker gradually and has had several episodes of fall, that have increased in frequency the last 3 days. Pt was found to have a UTI recently and was getting PO antibiotics but his weakness got worse. Today he had a fall with head trauma (No LOC) and also R arm trauma. 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 states he has H.O TIA's and has been on Warfarin, last 3 INR were all high, attributted to the antibiotics. He states he has severe R arm pain (can't move it) he is immobilized. X rays did not show an obvious fracture. CT brain - no bleed. Pt was admitted for treatment - to avoid falls at home and will probably need rehab. he is awake alert, oriented x 3 coherent well perfused. For complete details of the H&P, refer to that document. Objective Vital signs: Temperature 98.5 F 04/28/17 15:30 Pulse Rate 85 04/28/17 15:30 Respiratory Rate 18 04/28/17 15:30 Blood Pressure 122/65 04/28/17 15:30 Pulse Oximetry 95 04/28/17 15:30 Oxygen Delivery Method Room Air Height: 1.75 m Weight: 101.5 kg Body Mass Index: 33.0 Hospital Course This is a general summary of the patient's hospital course. For more details refer to the complete medical record. Hospital course: 04/26/17 12:14 Mr Zepeda is a 86 YO male with H.O Inoperable CAD, weakness with recurrent falls that have increased over the last week. He has had many falls and is at risk of a fracture. He was admitted for this on 04/25. His head CT (No contrast) showed no bleed. Pt is Coagulopathic so will hold his warfarin for now. Will continue pt on fall precautions for now. He has pain on his R arm proximally - distal motor function and perfussion is preserved. He can tolerate passive motion of his elbow and his shoulder. Plan is to have PT /OT evaluate him for a transfer eariler this coming week. 04/27/17 11:16 Remains stable, pt evaluated by Ortho possible new R sided rotator cuff tear - will be getting a steroid shot for this. 04/28/17 11:21 Will check CMP due to hypokalemia and elevated LFT. CBC due to Resolving UTI. Check INR due to Coumadin use. Continue to work on pain control. Possible shoulder injection by ortho to help pain. Coumadin on hold-INR was therapeutic yesterday. Continue Therapy to maximize functional status. Will continue Rocephin for urinary coverage - likely could stop in near future. Encourage oral intake. Likely discharge to IRU today for continuation of therapy and pain control. CMP showing elevated liver enzymes - will place statin on hold. IRU did accept patient to maximize his functional status. Will discharge there in stable condition. Time spent with patient: Greater than 35 minutes DVT Prophylaxis: Coumadin Discharge Plan - Med Rec/Dispo [place] Instructions: Fall Prevention for Older Adults (GEN) Prescriptions: New Hydrocodone/APAP 10/325 [Adel 10/325] 1 tab PO Q4H PRN tablet PRN Reason: Pain NS FLUSH BAG 500ml [Normal Saline] 500 ml IV PRN PRN iv.soln PRN Reason: Flushing Hydromorphone [Dilaudid] 0.5 mg IVP Q2H PRN vial PRN Reason: Pain Continue Phenytoin Sodium Extended 500 mg PO HS #0 Multivitamin [Multi-Day Vitamins] 1 tab PO DAILY #0 Glucosamine Sulfate Dipot Chlr [Glucosamine] 1,000 mg PO DAILY #0 Cyanocobalamin (Vitamin B-12) (Vitamin B-12) 1 tab PO DAILY #0 Aspirin [Adult Low Dose Aspirin EC] 81 mg PO HS Docusate Sodium [Stool Softener] 100 mg PO BID Metoprolol Succinate 25 mg PO DAILY Donepezil HCl [Aricept] 10 mg PO HS Warfarin Sodium 9 mg PO SUWE Calcium Carbonate 600 mg PO DAILY Isosorbide Mononitrate ER [Imdur] 30 mg PO DAILY Warfarin Sodium 10 mg PO MOTUTHFRSA Discontinued Atorvastatin Calcium 20 mg PO DAILY cephALEXin [Cephalexin] 500 mg PO TID - Disposition [address] [facility] INPT Rehab
== END 2017-04-28 20:35 | DRG 558 ==
LOC: ED 11:16 → MED 16:35
PROVIDERS: ADMIT Internal Medicine; ATTEND Internal Medicine

== ENCOUNTER 2017-04-28 21:00 | Inpatient (IN) ==
[2017-04-28] MEDS ORDERED: BUPIVACAINE 0.5% (5mg/ml) PF 30ml INJ SDV INJ ONE (22:26)
[2017-04-28] MEDS ORDERED: LIDOCAINE 1% (10mg/ml) 30ml SDV INJ INJ ONE (22:26)
[2017-04-28] MEDS ORDERED: BETAMETHASONE 30 MG/5 ML INJECTION IM ONE (22:26)
[2017-04-28] MEDS ORDERED: SALINE FLUSH 10ml SYRINGE IVF PRN (22:26)
[2017-04-28] MEDS ORDERED: NS FLUSH BAG 500ml IV PRN (22:26)
[2017-04-28] MEDS ORDERED: ATORVASTATIN 20 MG TABLET PO SCH (22:45)
[2017-04-28] MEDS: ASPIRIN *EC* 81 MG TABLET PO SCH (23:19)
[2017-04-28] MEDS: DOCUSATE SODIUM 100 MG CAPSULE PO SCH (23:19)
[2017-04-28] MEDS: DONEPEZIL 10 MG TABLET PO SCH (23:20)
[2017-04-28] MEDS: PHENYTOIN 100 MG CAPSULE PO SCH (23:20)
[2017-04-28] MEDS: HYDROCODONE/APAP 10 MG/325 MG TABLET PO PRN (23:26)
[2017-04-28] MEDS: HYDROMORPHONE 2 MG/ML INJECTION IVP PRN (23:50)
[2017-04-29 03:14] VITALS: BMI 33.0
[2017-04-29] MEDS: HYDROCODONE/APAP 10 MG/325 MG TABLET PO PRN ×4 (03:56→21:45)
[2017-04-29] MEDS: MULTI-VITAMIN PLAIN TABLET PO SCH (08:40)
[2017-04-29] MEDS: CALCIUM CARBONATE 600 MG TABLET PO SCH (08:41)
[2017-04-29] MEDS: ISOSORBIDE MONONITRATE ER 30 MG TABLET PO SCH (08:41)
[2017-04-29] MEDS ORDERED: DOCUSATE SODIUM 100 MG CAPSULE PO SCH (09:00)
--- NOTE | 2017-04-29 09:45 | Consult Note ---
<Araseli Martin V - Last Filed: 04/29/17 09:41> Consult Information - Data of Consult Patient: known to practice within the last 3 years Consult date: 04/29/17 Requesting Physician: Edilson Dominguez MD Primary Care Provider: Trinidad Solitario DO Family Provider: Trinidad Solitario DO - Consult Narrative Reason for consult: UTI, weakness falls, Shoulder pain History of present illness: Mr Zepeda is well known to the hospitalist services as he was recently admitted following several episodes of falls. He was found to have a urinary tract infection and was placed on antibiotic therapy. Given his multiple existing comorbidities. He was acutely evaluated and treated, however, continued to display weakness and unsteadiness. Was accepted to inpatient rehabilitation unit for ongoing therapy and improved strength. Morning laboratory studies were reviewed. The WBC count 9.8, hemoglobin 11.3, hematocrit 34.3, platelet count 324. Sodium is 136, potassium 3.7, BUN 11, creatinine 0.6, glucose 113. Total bilirubin is elevated at 1.4, as well as liver function, AST 240 ALT 128. Fortunato is seen this morning while eating breakfast. He verbalizes that he is in a lot of pain this morning in the right shoulder. Pain is constant in nature and is worse this morning. He denies having chest pain, shortness of breath of GI complaints. BP this normal this morning 109/53. 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 - Social History Smoking status: Never smoker Substance use type: does not use Alcohol intake frequency: does not drink Housing: house Review of Systems All systems: reviewed and no additional remarkable complaints except as stated - Musculoskeletal Musculoskeletal: Present: as per HPI Musculoskeletal Comments: Right shoulder pain Medications Home Medications Medication Instructions Recorded Confirmed Type Cyanocobalamin (Vitamin B-12) 1 tab PO DAILY #0 01/20/16 04/28/17 History (Vitamin B-12) Glucosamine Sulfate Dipot Chlr 1,000 mg PO DAILY #0 01/20/16 04/28/17 History [Glucosamine] Multivitamin [Multi-Day Vitamins] 1 tab PO DAILY #0 01/20/16 04/28/17 History Phenytoin Sodium Extended 500 mg PO HS #0 01/20/16 04/28/17 History Aspirin [Adult Low Dose Aspirin EC] 81 mg PO HS 04/25/17 04/28/17 History Calcium Carbonate 600 mg PO DAILY 04/25/17 04/28/17 History Docusate Sodium [Stool Softener] 100 mg PO BID 04/25/17 04/28/17 History Donepezil HCl [Aricept] 10 mg PO HS 04/25/17 04/28/17 History Isosorbide Mononitrate ER [Imdur] 30 mg PO DAILY 04/25/17 04/28/17 History Metoprolol Succinate 25 mg PO DAILY 04/25/17 04/28/17 History Warfarin Sodium 9 mg PO SUWE 04/25/17 04/28/17 History Warfarin Sodium 10 mg PO MOTUTHFRSA 04/25/17 04/28/17 History Allergies Allergy/AdvReac Type Severity Reaction Status Date / Time No Known Drug Allergies Allergy Unknown Verified 04/28/17 22:19 Exam Vital Signs: Temperature 99.0 F 04/28/17 21:46 Pulse Rate 91 04/28/17 21:46 Respiratory Rate 12 04/28/17 21:46 Blood Pressure 142/69 H 04/28/17 21:46 Pulse Oximetry 93 04/28/17 21:46 Oxygen Delivery Method Room Air Height: 1.77 m Weight: 102.9 kg Body Mass Index: 33.0 - Constitutional Present: no acute distress, mild distress, well nourished, well developed - Routine HEENT Exam Head: Present: normocephalic, atraumatic Eye: Present: EOMI, PERRL ENT: Present: mucous membranes moist - Routine Neck Exam Present: supple, full ROM - Routine Respiratory Exam Present: CTA bilaterally - Routine Cardiovascular Exam Present: RRR, S1, S2, no murmur - Routine Abdominal Exam Present: soft, normoactive bowel sounds - Routine Extremities Exam Comments: Decreased ROM to right shoulder due to pain - Routine Back/Spine/Pelvis Exam Back/Spine: Present: full ROM - Routine Skin Exam Present: intact, dry, warm - Routine Neurological Exam Present: alert, oriented X3, CN II-XII intact - Routine Psychiatric Exam Present: normal affect, normal thought process Results - Labs CBC & Chem 7: 04/29/17 04:39 04/29/17 04:39 Assessment and Plan (1) Complete rotator cuff tear or rupture of right shoulder, not specified as traumatic Current visit: No Status: Acute (2) Complete tear of rotator cuff Current visit: No Status: Acute (3) Status post fall Current visit: No Status: Acute (4) Urinary tract infection Current visit: No Status: Acute (5) Weakness Current visit: No Status: Acute (6) Anticoagulated on Coumadin Current visit: No Status: Chronic (7) CAD (coronary artery disease) Current visit: No Status: Chronic (8) Dementia Current visit: No Status: Chronic (9) Dyslipidemia Current visit: No Status: Chronic (10) Seizure disorder Current visit: No Status: Chronic (11) Osteoarthritis Current visit: No Status: Chronic DVT Prophylaxis: SCD's Assessment and Plan: Agree with admission to IRU for ongoing rehabilitation and improved function given recent falls. Will continue with Keflex to complete a 7 days course of antibiotics. End date of May 02. Continue with arm sling for support. Utilize [place] for support. May need to add a longer acting pain mediation. Initially Ultram was ordered for further pain control, however this was discontinued due to seizure history as ultram may lower threshold. Lipitor stopped given continued elevation in LFTs Spoke with Umer RODRIGUEZ with ortho team. Will consult again to discuss possible right shoulder injection for better pain control. Will check INR today. Coumadin currently on hold given prior INR elevations. Will continue to follow patient carefully to medically manage his existing comorbidities. At time of discharge medical care will return to primary care provider, Dr. Trinidad Solitario [place] Hospital Course Summary Disclaimer: The visit summary below is not to be considered part of the above Progress Note. Sepsis Assessment - Evaluation Sepsis screening result: No Definite Risk <Rylan Riley - Last Filed: 04/29/17 19:31> Consult Information - Data of Consult Requesting Physician: Edilson Dominguez MD Primary Care Provider: Trinidad Solitario DO Family Provider: Trinidad Solitario DO [facility] Patient Stated Medical History Cerebrovascular Accident Yes Dementia Yes 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 Syncope Yes Transient Ischemic Attacks ( Yes TIA) Cataracts Yes Dental Problems Yes Macular Degeneration Yes Angina Yes Coronary Artery Disease Yes Hypertension Yes Myocardial Infarction Yes Valvular Heart Disease Yes Sleep Apnea Yes Constipation Yes Ulcer Yes Hx Incontinence Yes Hx Urinary Tract Infection Yes Clotting Problems Yes Osteoarthritis Yes Sepsis Yes Exam Vital Signs: Temperature 98.1 F 04/29/17 16:00 Pulse Rate 85 04/29/17 16:00 Respiratory Rate 12 04/29/17 16:00 Blood Pressure 118/57 04/29/17 16:00 Pulse Oximetry 94 04/29/17 16:00 Oxygen Delivery Method Room Air Height: 1.77 m Weight: 102.9 kg Results - Labs CBC & Chem 7: 04/29/17 04:39 04/29/17 04:39 Assessment and Plan (1) Complete rotator cuff tear or rupture of right shoulder, not specified as traumatic Current visit: No Status: Acute (2) Complete tear of rotator cuff Current visit: No Status: Acute (3) Weakness Current visit: No Status: Acute (4) Status post fall Current visit: No Status: Acute (5) Urinary tract infection Current visit: No Status: Acute (6) CAD (coronary artery disease) Current visit: No Status: Chronic (7) Dyslipidemia Current visit: No Status: Chronic (8) Anticoagulated on Coumadin Current visit: No Status: Chronic (9) Seizure disorder Current visit: No Status: Chronic (10) Osteoarthritis Current visit: No Status: Chronic (11) Dementia Current visit: No Status: Chronic Assessment and Plan: Have independently interviewed and examined pt. Chart reviewed. Case discussed with my SENIOR GAME DESIGNER. Above care plan developed with my supervision; agree with above. Doing okay. Still notes pain to shoulder-varies. Was not to keen of shoulder injection due to worry of discomfort with procedure; this evening family report he is willing to try as likely will help his pain. Did well with therapy-very tiring. Breathing well. No chest pain. No nausea. Lungs: decreased, no distress CV: regular AB: soft nt/nd +BS MSE: awake alert Plan: Would hold Coumadin until after shoulder injection-hope ortho can perform injection tomorrow. Continue with cephalexing for antimicrobial coverage. Hold Lipitor-monitor LFTs. Encourage therapy. Medically stable for IRU floor participation. Hospital Course Summary Disclaimer: The visit summary below is not to be considered part of the above Progress Note.
[2017-04-29] MEDS ORDERED: TRAMADOL 50 MG TABLET PO PRN (10:06)
[2017-04-29] MEDS: DOCUSATE SODIUM 100 MG CAPSULE PO SCH ×2 (12:28→21:27)
--- NOTE | 2017-04-29 15:58 | Orthopedic Consult Note ---
Orthopedic Consultation HPI - Consultation Info Consult Date: 04/29/17 Attending Physician: Virginia Kate MD Consult Reason: joint pain - HPI Elements right lateral shoulder Injury: Yes (see recent inpatient H&P) Pain: sharp Onset: sudden Radiating: No Severity: moderate Duration: several days How Often Does Pain Occur: constant Previous Surgery: No Previous Injury: No Aggrevated by: all activity Associated Symptoms: difficulties dressing, weakness, no chills, no warmth, no numbness Treatments Tried: rest, immobilization, pain medications - History of Present Illness Mr. Zepeda was moved to IRU today and Orthopaedic was consulted again for right shoulder pain. In review, he was recently admitted as an inpatient for a series of falls and progressive weakness. He was found to have a UTI and has been treated for this. He right shoulder continues to be very painful. X-rays of the shoulder and elbow have been reviewed by ortho and Dr. Poe and have found to be negative. Clinically Mr. Zepeda appears to have a rotator cuff tear, but no further MRI or studies have been ordered due to the fact that he is not a surgical canidate. The hospital service has been ajusting his pain medications with limited progress on treating his pain. Ortho has offered him a subacromial injection in an effort to aid pain control, but he has yet to agree to the injection. A hot pack and a sling have been provided. His pain is anterior lateral, worse with any movement, better with in activity. Review of Systems All systems: reviewed and no additional remarkable complaints except as stated PFSH Patient Stated Medical History Cerebrovascular Accident Yes Dementia Yes 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 Syncope Yes Transient Ischemic Attacks ( Yes TIA) Cataracts Yes Dental Problems Yes Macular Degeneration Yes Angina Yes Coronary Artery Disease Yes Hypertension Yes Myocardial Infarction Yes Valvular Heart Disease Yes Sleep Apnea Yes Constipation Yes Ulcer Yes Hx Incontinence Yes Hx Urinary Tract Infection Yes Clotting Problems Yes Osteoarthritis Yes Sepsis Yes Surgical History: Had a recent heart cath and was found to have multi-vessel disease not a candidate for surgery. - Social History Current residence: Apartment/Private Home Medications Home Medications Medication Instructions Recorded Confirmed Type Cyanocobalamin (Vitamin B-12) 1 tab PO DAILY #0 01/20/16 04/28/17 History (Vitamin B-12) Glucosamine Sulfate Dipot Chlr 1,000 mg PO DAILY #0 01/20/16 04/28/17 History [Glucosamine] Multivitamin [Multi-Day Vitamins] 1 tab PO DAILY #0 01/20/16 04/28/17 History Phenytoin Sodium Extended 500 mg PO HS #0 01/20/16 04/28/17 History Aspirin [Adult Low Dose Aspirin EC] 81 mg PO HS 04/25/17 04/28/17 History Calcium Carbonate 600 mg PO DAILY 04/25/17 04/28/17 History Docusate Sodium [Stool Softener] 100 mg PO BID 04/25/17 04/28/17 History Donepezil HCl [Aricept] 10 mg PO HS 04/25/17 04/28/17 History Isosorbide Mononitrate ER [Imdur] 30 mg PO DAILY 04/25/17 04/28/17 History Metoprolol Succinate 25 mg PO DAILY 04/25/17 04/28/17 History Warfarin Sodium 9 mg PO SUWE 04/25/17 04/28/17 History Warfarin Sodium 10 mg PO MOTUTHFRSA 04/25/17 04/28/17 History Allergies Allergy/AdvReac Type Severity Reaction Status Date / Time No Known Drug Allergies Allergy Unknown Verified 04/28/17 22:19 Orthopedic Exam Vital signs: Temperature 98.1 F 04/29/17 08:00 Pulse Rate 76 04/29/17 08:00 Respiratory Rate 18 04/29/17 08:00 Blood Pressure 109/53 04/29/17 08:00 Pulse Oximetry 90 04/29/17 08:00 Oxygen Delivery Method Room Air - Constitutional General Appearance: Present: alert, no acute distress - Respiratory Exam Present: non-labored - Cardiovascular Exam Present: pedal pulses intact Capillary Refill: < 2-3 Seconds - Abdominal Exam Present: soft - Extremities Exam Present: pulses intact. Absent: calf tenderness Comments: very limited ROM of the right shoulder, all causing pain. neurologically intact. - Integumentary Exam Present: pink, warm, dry - Lymphatic Lymphatic: Absent: lymphedema - Neurological Exam Present: intact to light touch, no deficits - Psychiatric Exam Present: alert - Labs Result Diagrams: 04/29/17 04:39 04/29/17 04:39 Abnormal lab results 04/29/17 04/29/17 04/29/17 Range/Units 04:39 04:39 11:34 RBC 3.53 L (4.50-5.90) M/MM3 Hgb 11.3 L (13.5-17.5) GM/DL Hct 34.3 L (41-53) % Neut % (Auto) 70.8 H (33-66) % Lymph % (Auto) 17.1 L (23-45) % [place] % (Auto) 10.4 H (0-9.0) % [place] # 1.0 H (0-0.8) T/MM3 Abs Immat Gran (auto) 0.05 H (0.00-0.03) T/MM3 INR 1.50 H (0.90-1.23) Chloride 94 L (98-107) MEQ/L Carbon Dioxide 31 H (22-30) MEQ/L Creatinine 0.6 L D (0.8-1.5) MG/DL Glucose 113 H (75-110) MG/DL Calcium 7.9 L D (8.4-10.2) MG/DL Total Bilirubin 1.40 H (0.20-1.30) MG/DL AST 240 H (17-59) U/L ALT 128 H (21-72) U/L Alkaline Phosphatase 213 H (38-126) U/L Albumin 3.3 L (3.5-5.0) G/DL Albumin/Globulin Ratio 1.0 L (1.1-2.2) RATIO H & H 04/29/17 Range/Units 04:39 Hgb 11.3 L (13.5-17.5) GM/DL Hct 34.3 L (41-53) % Coagulation 04/29/17 Range/Units 11:34 INR 1.50 H (0.90-1.23) Impression and Recommendation (1) Sprain of acromioclavicular ligament of right shoulder Current visit: No Qualifiers: Encounter type: subsequent encounter Qualified Code(s): S43.51XD - Sprain of right acromioclavicular joint, subsequent encounter Status: Acute (2) Complete tear of rotator cuff Current visit: No Status: Acute recommend a subacromial injection. Patient wanted to think about it. I will check back again tomorrow. Another option would be a Lidocaine patch. Again,if pain persists, then CT would be an option for further evaluation. Hospital Course Summary Disclaimer: The visit summary below is not to be considered part of the above Progress Note.
[2017-04-29] MEDS: SALINE FLUSH 10ml SYRINGE IVF PRN ×2 (17:34→21:36)
[2017-04-29] MEDS: DONEPEZIL 10 MG TABLET PO SCH (21:28)
[2017-04-29] MEDS: PHENYTOIN 100 MG CAPSULE PO SCH (21:28)
[2017-04-29] MEDS: ASPIRIN *EC* 81 MG TABLET PO SCH (21:28)
[2017-04-29] MEDS ORDERED: PHENYTOIN 100 MG CAPSULE PO SCH (22:00)
[2017-04-29] MEDS ORDERED: ATORVASTATIN 20 MG TABLET PO SCH (22:00)
[2017-04-29] MEDS ORDERED: DONEPEZIL 10 MG TABLET PO SCH (22:00)
[2017-04-29] MEDS ORDERED: ASPIRIN *EC* 81 MG TABLET PO SCH (22:00)
[2017-04-30] MEDS ORDERED: BISACODYL 10 MG SUPPOSITORY RECTALLY PRN (00:39)
[2017-04-30] MEDS ORDERED: Bisacodyl EC TAB 5 MG TABLET PO PRN (00:39)
[2017-04-30] MEDS: HYDROMORPHONE 2 MG/ML INJECTION IVP PRN ×2 (01:00→04:50)
--- NOTE | 2017-04-30 07:00 | IRU History & Physical Report ---
HPI IRU Date: Chief complaint: Frequent falls HPI: 86 yo gentleman with hx of frequent and repeated falls. Was seen through ED and dx with activ UTI. During hospital admission and treatment with abx, he continued to be unstable and it was determined that he was not safe to return home. He is unable to manage basic ADL's due to weakness and instability. He is admitted to IRU for strengthening and safety teaching. Review of Systems All systems: reviewed and no additional remarkable complaints except as stated - Constitutional Constitutional: Present: as per HPI - Musculoskeletal Musculoskeletal: Present: as per HPI PFSH Patient Stated Medical History Cerebrovascular Accident Yes Dementia Yes 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 Syncope Yes Transient Ischemic Attacks ( Yes TIA) Cataracts Yes Dental Problems Yes Macular Degeneration Yes Angina Yes Coronary Artery Disease Yes Hypertension Yes Myocardial Infarction Yes Valvular Heart Disease Yes Sleep Apnea Yes Constipation Yes Ulcer Yes Hx Incontinence Yes Hx Urinary Tract Infection Yes Clotting Problems Yes Osteoarthritis Yes Sepsis Yes Surgical History: Had a recent heart cath and was found to have multi-vessel disease not a candidate for surgery. - Social History Smoking status: Never smoker Substance use type: does not use Current residence: Apartment/Private Home Medications Home Medications Medication Instructions Recorded Confirmed Type Cyanocobalamin (Vitamin B-12) 1 tab PO DAILY #0 01/20/16 04/28/17 History (Vitamin B-12) Glucosamine Sulfate Dipot Chlr 1,000 mg PO DAILY #0 01/20/16 04/28/17 History [Glucosamine] Multivitamin [Multi-Day Vitamins] 1 tab PO DAILY #0 01/20/16 04/28/17 History Phenytoin Sodium Extended 500 mg PO HS #0 01/20/16 04/28/17 History Aspirin [Adult Low Dose Aspirin EC] 81 mg PO HS 04/25/17 04/28/17 History Calcium Carbonate 600 mg PO DAILY 04/25/17 04/28/17 History Docusate Sodium [Stool Softener] 100 mg PO BID 04/25/17 04/28/17 History Donepezil HCl [Aricept] 10 mg PO HS 04/25/17 04/28/17 History Isosorbide Mononitrate ER [Imdur] 30 mg PO DAILY 04/25/17 04/28/17 History Metoprolol Succinate 25 mg PO DAILY 04/25/17 04/28/17 History Warfarin Sodium 9 mg PO SUWE 04/25/17 04/28/17 History Warfarin Sodium 10 mg PO MOTUTHFRSA 04/25/17 04/28/17 History Allergies Allergy/AdvReac Type Severity Reaction Status Date / Time No Known Drug Allergies Allergy Unknown Verified 04/28/17 22:19 Exam Vital Signs: Temperature 99.1 F 04/29/17 20:00 Pulse Rate 89 04/30/17 00:00 Respiratory Rate 24 04/29/17 20:00 Blood Pressure 129/63 04/30/17 00:00 Pulse Oximetry 90 04/29/17 20:00 Oxygen Delivery Method Room Air Height: 1.77 m Weight: 102.9 kg Body Mass Index: 33.0 - Constitutional Present: no acute distress, obese - Routine HEENT Exam Head: Present: normocephalic Eye: Present: EOMI, PERRL - Routine Neck Exam Absent: carotid bruit - Routine Chest/Breast/Axilla Exam Chest wall: Absent: tenderness - Routine Respiratory Exam Present: CTA bilaterally. Absent: wheezes, crackles - Routine Cardiovascular Exam Present: RRR, no murmur - Routine Abdominal Exam Present: soft, normoactive bowel sounds, non distended, non tender - Routine Extremities Exam Absent: cyanosis, clubbing - Routine Skin Exam Present: dry, warm Sepsis Assessment - Evaluation Sepsis screening result: No Definite Risk IRU A/P (1) Weakness Current visit: No Status: Acute PT and OT will work with pt to create plan of care to increase strength and stability. (2) Urinary tract infection Qualifiers: Urinary tract infection type: acute cystitis Hematuria presence: without hematuria Qualified Code(s): N30.00 - Acute cystitis without hematuria Current visit: No Status: Acute Managed by medical. (3) Complete rotator cuff tear or rupture of right shoulder, not specified as traumatic Current visit: No Status: Acute Ortho is following. (4) Status post fall Current visit: No Status: Acute PT and OT working with pt to increase safety. (5) Anticoagulated on Coumadin Current visit: No Status: Chronic Managed by medical. (6) Dementia Qualifiers: Dementia type: unspecified type Dementia behavioral disturbance: without behavioral disturbance Qualified Code(s): F03.90 - Unspecified dementia without behavioral disturbance Current visit: No Status: Chronic managed by medical. Dementia does complicate safety education. DVT Prophylaxis: SCD's - Course Hospital Course: Edilson Dominguez MD: - Interventions to Obtain Goals PT Treatment Plan: Balance/Proprioception, Functional Activities, Gait Training , Patient/Family Education, Therapeutic Exercise OT Treatment Plan: ADL (Basic Care), Balance Training, IADL, Pt./Family Education, Ther. Exercise for ADL, UE Functional Training
[2017-04-30] MEDS: ISOSORBIDE MONONITRATE ER 30 MG TABLET PO SCH (07:03)
--- NOTE | 2017-04-30 07:12 | IRU 24Hr Post Admit Eval ---
24 Hr Post Admission Physical - Relevant Changes Relevant Changes: No Reviewed: I have reviewed the patient's information and concur with the finding and results of the pre-admission screen. Certification: I certify the patient for rehabilitation. - Patient Condition (1) Weakness Status: Acute Code(s): R53.1 - Weakness (2) Urinary tract infection Status: Acute Qualifiers: Urinary tract infection type: acute cystitis Hematuria presence: without hematuria Qualified Code(s): N30.00 - Acute cystitis without hematuria Code(s): N39.0 - Urinary tract infection, site not specified (3) Complete rotator cuff tear or rupture of right shoulder, not specified as traumatic Status: Acute Code(s): M75.121 - Complete rotator cuff tear or rupture of right shoulder, not specified as traumatic (4) Status post fall Status: Acute Code(s): Z91.81 - History of falling (5) Anticoagulated on Coumadin Status: Chronic Code(s): Z51.81 - Encounter for therapeutic drug level monitoring; Z79.01 - intermodal truck driver (current) use of anticoagulants (6) Dementia Status: Chronic Qualifiers: Dementia type: unspecified type Dementia behavioral disturbance: without behavioral disturbance Qualified Code(s): F03.90 - Unspecified dementia without behavioral disturbance Code(s): F03.90 - Unspecified dementia without behavioral disturbance - Prior Functional Status Lives With: Alone Residence Type: Apartment/Private Home Assitive Devices: None Prior Functional Status: Indep. at home or school - Current Functional Status Failed Alternative Therapy: Arrived from Acute Care Patient Requirements: The patient requires oversight by rehabilitation physician to manage their rehabilitation treatment plan and multidisciplinary approach to care that can only be provided in an IRF and requires a multidisciplinary approach to care, provided by professional PTs, OTs, STs, dieticians, RTs, rehabilitation nurses and is not available in lesser levels of care. Limitiations Req: Mobility Impairment, ADL Impairment, Cognitive Impairment Physical Therapy Minutes: 90 Occupational Therapy Minutes: 90 Therapy: The patient is to receive therapy at least 5 days a week. ROM Deficit: Right Upper Extremity, Left Upper Extremity - Complications/Comorbidities Impact on Functional Outcomes: Due to now bilateral rotator cuff injuries, pt will have difficulty using walker for stability and cannot catch himself when he stumbles. This will complicate process of care, but pt will be able to safely ambulate with limitations at time of d/c. Barriers to Discharge: Weakness, Balance, Endurance, Pain Control - Plan to Avoid Complications Plan to Avoid Complications: The patient cannot receive this care in a lesser intensive setting such as Detention or Outpatient Therapy due to the patient requiring medical supervision due to anticoagulation and risk of fall or over treating with coumadin.
--- NOTE | 2017-04-30 07:26 | Orthopedic Progress Note ---
Date: Subjective/Severity of Illness: Fortunato indicates he still is not interested in a shot today. His sling is on and he is sleeping when I entered the room. He awoke easily. He still located the majority of his pain at the shoulder. He feels his pain is improving minimally. He denies elbow pain today. Orthopedic Objective Vital signs: Temperature 99.1 F 04/29/17 20:00 Pulse Rate 89 04/30/17 00:00 Respiratory Rate 24 04/29/17 20:00 Blood Pressure 129/63 04/30/17 00:00 Pulse Oximetry 90 04/29/17 20:00 Oxygen Delivery Method Room Air Height and Weight: Height 5 ft 9.5 in Weight 226 lb 13.69 oz Body Mass Index 33.0 - Constitutional General Appearance: Present: alert, no acute distress - Respiratory Exam Present: non-labored - Cardiovascular Exam Present: pedal pulses intact Capillary Refill: < 2-3 Seconds - Abdominal Exam Present: soft - Extremities Exam Absent: cyanosis, clubbing Comments: His elbow is nontender to palpation today. He demonstrates active flexion, extension, supination and pronation with minimal to no pain. Still very limited shoulder motion actively. - Integumentary Exam Present: pink, warm, dry - Lymphatic Lymphatic: Absent: lymphedema - Neurological Exam Present: intact to light touch, no deficits - Psychiatric Exam Present: normal affect - Labs Result Diagrams: 04/30/17 04:44 04/30/17 04:44 Abnormal lab results 04/29/17 04/30/17 04/30/17 Range/Units 11:34 04:44 04:44 RBC 3.69 L (4.50-5.90) M/MM3 Hgb 11.9 L (13.5-17.5) GM/DL Hct 35.7 L (41-53) % Neut % (Auto) 73.5 H (33-66) % Lymph % (Auto) 14.9 L (23-45) % [place] % (Auto) 10.4 H (0-9.0) % Neut # 8.1 H (1.8-7.7) T/MM3 [place] # 1.1 H (0-0.8) T/MM3 Abs Immat Gran (auto) 0.06 H (0.00-0.03) T/MM3 INR 1.50 H (0.90-1.23) Chloride 94 L (98-107) MEQ/L Creatinine 0.7 L (0.8-1.5) MG/DL Glucose 134 H (75-110) MG/DL AST 229 H (17-59) U/L ALT 137 H (21-72) U/L Alkaline Phosphatase 250 H (38-126) U/L 04/30/17 Range/Units 04:44 RBC (4.50-5.90) M/MM3 Hgb (13.5-17.5) GM/DL Hct (41-53) % Neut % (Auto) (33-66) % Lymph % (Auto) (23-45) % [place] % (Auto) (0-9.0) % Neut # (1.8-7.7) T/MM3 [place] # (0-0.8) T/MM3 Abs Immat Gran (auto) (0.00-0.03) T/MM3 INR 1.40 H (0.90-1.23) Chloride (98-107) MEQ/L Creatinine (0.8-1.5) MG/DL Glucose (75-110) MG/DL AST (17-59) U/L ALT (21-72) U/L Alkaline Phosphatase (38-126) U/L H & H 04/29/17 04/30/17 Range/Units 04:39 04:44 Hgb 11.3 L 11.9 L (13.5-17.5) GM/DL Hct 34.3 L 35.7 L (41-53) % Coagulation 04/29/17 04/30/17 Range/Units 11:34 04:44 INR 1.50 H 1.40 H (0.90-1.23) Orthopedic Assessment and Plan (1) Sprain of acromioclavicular ligament of right shoulder Status: Acute Qualifiers: Encounter type: subsequent encounter Qualified Code(s): S43.51XD - Sprain of right acromioclavicular joint, subsequent encounter (2) Complete tear of rotator cuff Status: Acute Assessment and Plan: The option of an injection is still available if the patient wishes to proceed. Ortho will step aside unless further evaluation is needed or patient wants a shot. Hospital Course Summary Disclaimer: The visit summary below is not to be considered part of the above Progress Note.
[2017-04-30] MEDS: MULTI-VITAMIN PLAIN TABLET PO SCH (09:25)
[2017-04-30] MEDS: DOCUSATE SODIUM 100 MG CAPSULE PO SCH ×2 (09:25→22:20)
[2017-04-30] MEDS: CALCIUM CARBONATE 600 MG TABLET PO SCH (09:25)
[2017-04-30] MEDS: HYDROCODONE/APAP 10 MG/325 MG TABLET PO PRN ×2 (12:17→17:38)
[2017-04-30] MEDS: ASPIRIN *EC* 81 MG TABLET PO SCH (22:19)
[2017-04-30] MEDS: DONEPEZIL 10 MG TABLET PO SCH (22:20)
[2017-04-30] MEDS: PHENYTOIN 100 MG CAPSULE PO SCH (22:20)
[2017-05-01] MEDS: HYDROCODONE/APAP 10 MG/325 MG TABLET PO PRN ×2 (03:06→08:57)
[2017-05-01] MEDS: ISOSORBIDE MONONITRATE ER 30 MG TABLET PO SCH ×2 (05:00→06:30)
[2017-05-01] MEDS: DOCUSATE SODIUM 100 MG CAPSULE PO SCH ×2 (08:56→22:03)
[2017-05-01] MEDS: CALCIUM CARBONATE 600 MG TABLET PO SCH (08:56)
[2017-05-01] MEDS: MULTI-VITAMIN PLAIN TABLET PO SCH (08:56)
--- NOTE | 2017-05-01 10:32 | Progress Note ---
Subjective: Fortunato is seen this morning during breakfast, He states was not able to sleep well. We discussed ongoing right shoulder pain. Orthopedic team has evaluated patient multiple times however during exam he refused injection. Family has voiced their wishes multiple times about wanting to try the injection for better pain relief. Patient verbalizes that he is "scared about the needle". He denies having chest pain, shortness of breath or GI complaints. Blood pressure remains low however stable. Objective Vital signs: Temperature 98.7 F 05/01/17 08:00 Pulse Rate 93 05/01/17 08:00 Respiratory Rate 18 05/01/17 08:00 Blood Pressure 99/58 05/01/17 08:00 Pulse Oximetry 90 05/01/17 08:00 Oxygen Delivery Method Room Air Height: 1.77 m Weight: 102.9 kg Body Mass Index: 33.0 - Constitutional Present: no acute distress - Routine HEENT Exam Head: Present: normocephalic, atraumatic Eye: Present: EOMI, PERRL - Routine Respiratory Exam Present: CTA bilaterally - Routine Cardiovascular Exam Present: RRR, S1, S2 - Routine Abdominal Exam Present: soft, normoactive bowel sounds - Routine Extremities Exam Comments: Right shoulder pain - Routine Back/Spine/Pelvis Exam Back/Spine: Present: full ROM - Routine Skin Exam Present: intact, dry, warm - Routine Neurological Exam Present: alert, CN II-XII intact - Routine Psychiatric Exam Present: normal affect, normal thought process Results - Labs CBC & Chem 7: 05/01/17 04:59 05/01/17 04:59 Assessment and Plan (1) Weakness Current visit: No Status: Acute (2) Urinary tract infection Current visit: No Status: Acute (3) Complete rotator cuff tear or rupture of right shoulder, not specified as traumatic Current visit: No Status: Acute (4) Status post fall Current visit: No Status: Acute (5) Anticoagulated on Coumadin Current visit: No Status: Chronic (6) Dementia Current visit: No Status: Chronic Assessment and Plan: 05/01 Keflex course to end tomorrow 05/02 for 7 day coverage of UTI Orthopedic team will see him today at 1 pm. Will hopefully be able to get the shoulder injection at this time. His will be present at this time also. Varun for pain control Will consult pharmacy for management of INR and Coumadin dosing. Will resume this today. Lipitor stopped due to increased LFTs. They are trending down, Well continue to monitor Continue to work with PT/OT for ongoing therapy and strengthening Sepsis Assessment - Evaluation Sepsis screening result: No Definite Risk Hospital Course Summary Disclaimer: The visit summary below is not to be considered part of the above Progress Note.
--- NOTE | 2017-05-01 10:54 | IRU Progress Note ---
- Subjective/Serverity of Illness Pt working with PT and OT and increasing ability and safety awareness. Exam Vital Signs: Temperature 98.7 F 05/01/17 08:00 Pulse Rate 93 05/01/17 08:00 Respiratory Rate 18 05/01/17 08:00 Blood Pressure 99/58 05/01/17 08:00 Pulse Oximetry 90 05/01/17 08:00 Oxygen Delivery Method Room Air Height: 1.77 m Weight: 101.7 kg Body Mass Index: 33.0 - Constitutional Present: no acute distress - Routine Respiratory Exam Present: CTA bilaterally - Routine Cardiovascular Exam Present: RRR, no murmur Sepsis Assessment - Evaluation Sepsis screening result: No Definite Risk IRU A/P (1) Weakness Status: Acute PT and OT working to increase strenght and staminina. Reeval at team meeting. (2) Urinary tract infection Qualifiers: Urinary tract infection type: acute cystitis Hematuria presence: without hematuria Qualified Code(s): N30.00 - Acute cystitis without hematuria Status: Acute Managed by medical. (3) Complete rotator cuff tear or rupture of right shoulder, not specified as traumatic Status: Acute Physical therapy working with pt as he is not a good surgical candidate. Cont with PT and OT plan of care. (4) Status post fall Status: Acute Fall precautions, staff aware. (5) Anticoagulated on Coumadin Status: Chronic Managed by medical. (6) Dementia Qualifiers: Dementia type: unspecified type Dementia behavioral disturbance: without behavioral disturbance Qualified Code(s): F03.90 - Unspecified dementia without behavioral disturbance Status: Chronic no change in status DVT Prophylaxis: SCD's - Course Hospital Course: Edilson Dominguez MD: 04/30/17 10:53 - Interventions to Obtain Goals PT Treatment Plan: Balance/Proprioception, Functional Activities, Gait Training , Patient/Family Education, Therapeutic Exercise OT Treatment Plan: ADL (Basic Care), Balance Training, IADL, Pt./Family Education, Ther. Exercise for ADL, UE Functional Training
--- NOTE | 2017-05-01 11:26 | Pharmacy Consult ---
Pharmacy Consult-Warfarin - Laboratory Information 04/29/17 04/30/17 11:34 04:44 INR 1.50 H 1.40 H - Consult Information COUMADIN CONSULT (Initial): Dx: Baseline INR = 1.4. Will give Warfarin 10mg today. Will continue to monitor and make adjustments accordingly. Thank you.
--- NOTE | 2017-05-01 11:32 | IRU Progress Note ---
- Subjective/Serverity of Illness Pt up and ambulaing with PT assist. Cooperative. Exam Vital Signs: Temperature 98.7 F 05/01/17 08:00 Pulse Rate 93 05/01/17 08:00 Respiratory Rate 18 05/01/17 08:00 Blood Pressure 99/58 05/01/17 08:00 Pulse Oximetry 90 05/01/17 08:00 Oxygen Delivery Method Room Air Height: 1.77 m Weight: 102.9 kg Body Mass Index: 33.0 - Constitutional Present: no acute distress - Routine Respiratory Exam Present: CTA bilaterally. Absent: wheezes, crackles - Routine Cardiovascular Exam Present: RRR, no murmur Sepsis Assessment - Evaluation Sepsis screening result: No Definite Risk IRU A/P (1) Weakness Current visit: No Status: Acute PT and OT still following plan of care to increase strength and coordination. Improving sagety awareness. (2) Urinary tract infection Qualifiers: Urinary tract infection type: acute cystitis Hematuria presence: without hematuria Qualified Code(s): N30.00 - Acute cystitis without hematuria Current visit: No Status: Acute Medical to manage. (3) Complete rotator cuff tear or rupture of right shoulder, not specified as traumatic Current visit: No Status: Acute Cont with PT and OT plan of care. Reeval at team meeting on thursday. (4) Status post fall Current visit: No Status: Acute (5) Anticoagulated on Coumadin Current visit: No Status: Chronic Followed by pharmacy and medical. (6) Dementia Qualifiers: Dementia type: unspecified type Dementia behavioral disturbance: without behavioral disturbance Qualified Code(s): F03.90 - Unspecified dementia without behavioral disturbance Current visit: No Status: Chronic DVT Prophylaxis: SCD's - Course Hospital Course: Edilson Dominguez MD: 04/30/17 10:53 - Interventions to Obtain Goals PT Treatment Plan: Balance/Proprioception, Functional Activities, Gait Training , Patient/Family Education, Therapeutic Exercise OT Treatment Plan: ADL (Basic Care), Balance Training, IADL, Pt./Family Education, Ther. Exercise for ADL, UE Functional Training
[2017-05-01] MEDS ORDERED: WARFARIN 5 MG TABLET PO SCH (12:00)
[2017-05-01] MEDS ORDERED: BETAMETHASONE 30 MG/5 ML INJECTION IM ONE (13:00)
[2017-05-01] MEDS ORDERED: BUPIVACAINE 0.5% (5mg/ml) PF 30ml INJ SDV INJ ONE (13:00)
[2017-05-01] MEDS ORDERED: LIDOCAINE 1% (10mg/ml) 30ml SDV INJ INJ ONE (13:00)
--- NOTE | 2017-05-01 14:09 | Orthopedic Progress Note ---
Date: Subjective/Severity of Illness: Fortunato has agreed to a subacromial injection today. His is present. I explained the procedure to both of them and they both verbally agreed to the procedure. He had just finished PT when I arrived. He states his shoulder is painful. Interestingly, he is using his right arm for eating lunch today. No new complaints. Orthopedic Objective PO Vital signs: Temperature 98.7 F 05/01/17 08:00 Pulse Rate 93 05/01/17 08:00 Respiratory Rate 18 05/01/17 08:00 Blood Pressure 99/58 05/01/17 08:00 Pulse Oximetry 90 05/01/17 08:00 Oxygen Delivery Method Room Air Height and Weight: Height 5 ft 9.5 in Weight 226 lb 13.69 oz Body Mass Index 33.0 - Constitutional General Appearance: Present: alert, no acute distress - Respiratory Exam Present: non-labored - Cardiovascular Exam Present: pedal pulses intact Capillary Refill: < 2-3 Seconds - Abdominal Exam Present: soft, normoactive BS x4 - Extremities Exam Extremities: Present: pulses intact - Detailed Upper Extremity Exam Shoulder/Upper Arm: Right swelling, Right tenderness, Right decreased ROM, Right pain with active ROM, Right pain with passive ROM (better than AROM), Right tenderness over the SA bursa - Integumentary Exam Present: pink, warm, dry - Lymphatic Lymphatic: Absent: lymphedema - Neurological Exam Present: intact to light touch, no deficits - Psychiatric Exam Present: normal affect - Labs Result Diagrams: 05/01/17 04:59 05/01/17 04:59 Abnormal lab results 05/01/17 05/01/17 Range/Units 04:59 04:59 RBC 3.74 L (4.50-5.90) M/MM3 Hgb 11.9 L (13.5-17.5) GM/DL Hct 36.4 L (41-53) % Plt Count 459 H (130-400) T/MM3 Immature Gran % (Auto) 0.7 H (0.0-0.5) % Neut % (Auto) 67.4 H (33-66) % Lymph % (Auto) 20.0 L (23-45) % [place] % (Auto) 10.7 H (0-9.0) % [place] # 1.1 H (0-0.8) T/MM3 Abs Immat Gran (auto) 0.07 H (0.00-0.03) T/MM3 Sodium 131 L (134-144) MEQ/L Chloride 93 L (98-107) MEQ/L Carbon Dioxide 32 H (22-30) MEQ/L Creatinine 0.7 L (0.8-1.5) MG/DL Glucose 120 H (75-110) MG/DL Hemoglobin A1c 5.6 L (6.1-7.9) % Calculated Osmolality 253 L (261-280) MOSM/KG AST 216 H (17-59) U/L ALT 132 H (21-72) U/L Alkaline Phosphatase 235 H (38-126) U/L H & H 04/29/17 04/30/17 05/01/17 Range/Units 04:39 04:44 04:59 Hgb 11.3 L 11.9 L 11.9 L (13.5-17.5) GM/DL Hct 34.3 L 35.7 L 36.4 L (41-53) % Coagulation 04/29/17 04/30/17 Range/Units 11:34 04:44 INR 1.50 H 1.40 H (0.90-1.23) Orthopedic Assessment and Plan (1) Sprain of acromioclavicular ligament of right shoulder Status: Acute Qualifiers: Encounter type: subsequent encounter Qualified Code(s): S43.51XD - Sprain of right acromioclavicular joint, subsequent encounter (2) Complete tear of rotator cuff Status: Acute Assessment and Plan: subacromial injection was provided. Procedure: After obtaining verbal consent from both the patient and his the right posterior shoulder was cleansed with Chlorohexadine. Using sterile technique the subacromial bursa was infiltrated from a posterior approach using a 1 1/2 in 22 gauge needle. A combination of 3ml of 1% Lidocaine, 3ml of 0.25% Marcaine and 1ml of Betamethasone was injected. The needle was romoved, skin was cleansed with an alcohol swab and a sterile Band Aid was applied. He tolerated the procedure well. Patient and family were informed that it typically takes 3 days for the injection to begin working. Risks of Hyperglycemia were discussed with the use of the steroid. Hospital Course Summary Disclaimer: The visit summary below is not to be considered part of the above Progress Note.
[2017-05-01] MEDS: SALINE FLUSH 10ml SYRINGE IVF PRN (17:47)
[2017-05-01] MEDS: DONEPEZIL 10 MG TABLET PO SCH (22:02)
[2017-05-01] MEDS: PHENYTOIN 100 MG CAPSULE PO SCH (22:03)
[2017-05-01] MEDS: ASPIRIN *EC* 81 MG TABLET PO SCH (22:03)
[2017-05-02] MEDS: ISOSORBIDE MONONITRATE ER 30 MG TABLET PO SCH ×2 (04:12→05:52)
[2017-05-02] MEDS: CALCIUM CARBONATE 600 MG TABLET PO SCH (08:42)
[2017-05-02] MEDS: DOCUSATE SODIUM 100 MG CAPSULE PO SCH ×2 (08:42→21:02)
[2017-05-02] MEDS: MULTI-VITAMIN PLAIN TABLET PO SCH (08:42)
[2017-05-02] MEDS: HYDROCODONE/APAP 10 MG/325 MG TABLET PO PRN ×2 (08:44→17:53)
[2017-05-02] MEDS: SALINE FLUSH 10ml SYRINGE IVF PRN ×2 (08:44→17:54)
[2017-05-02] MEDS ORDERED: WARFARIN 5 MG TABLET PO ONE ×2 (12:00)
[2017-05-02] MEDS ORDERED: WARFARIN 4 MG TABLET PO ONE (12:00)
[2017-05-02] MEDS: PHENYTOIN 100 MG CAPSULE PO SCH (21:02)
[2017-05-02] MEDS: DONEPEZIL 10 MG TABLET PO SCH (21:02)
[2017-05-02] MEDS: ASPIRIN *EC* 81 MG TABLET PO SCH (21:02)
[2017-05-03] MEDS: ISOSORBIDE MONONITRATE ER 30 MG TABLET PO SCH ×2 (04:25→05:54)
[2017-05-03] MEDS: DOCUSATE SODIUM 100 MG CAPSULE PO SCH ×2 (09:25→21:29)
[2017-05-03] MEDS: HYDROCODONE/APAP 10 MG/325 MG TABLET PO PRN (09:25)
[2017-05-03] MEDS: MULTI-VITAMIN PLAIN TABLET PO SCH (09:25)
[2017-05-03] MEDS: CALCIUM CARBONATE 600 MG TABLET PO SCH (09:26)
--- NOTE | 2017-05-03 11:00 | Pharmacy Consult ---
Pharmacy Consult-Warfarin - Laboratory Information 04/29/17 04/30/17 05/02/17 11:34 04:44 04:50 INR 1.50 H 1.40 H 1.54 H 05/03/17 04:39 INR 1.85 H COUMADIN CONSULT (Recurring): Today's INR = 1.85. I ordered Warfarin 9 mg today. The patient is a 86 y.o. male chronically anti- coagulated with Warfarin. Warfarin dosing per pharmacy protocol ordered. Patient home dose is Warfarin 10 mg po daily except 9 mg on Thursday and Thursday. 04/25/27 lab patient's INR was 4.15. goal INR = 2.0 to 3.0. There is a potential drug-drug interaction between Cephalexin and warfarin, which may increase INR and risk for bleeding. Potential interaction also exists between Phenytoin and Warfarin however this should be a stable interaction since patient has been on both medications for some time. The Pharmacy will continue to monitor & make adjustments accordingly. Thank you for the Protocol, Nehemiah West, Pharmacist.
[2017-05-03] MEDS ORDERED: PROCHLORPERAZINE 5 MG TABLET PO PRN (11:40)
--- NOTE | 2017-05-03 11:42 | Progress Note ---
<Nette Escobar - Last Filed: 05/03/17 11:39> Subjective: Fortunato is seen today in follow up. He continues to have significant right shoulder pain. Unsure if injection helped. Reports he is walking around with family, is anxious to go home. Denies abdominal pain, but reports not eating much "don't feel like eating." Denies nausea or vomiting. Denies constipation or diarrhea. Objective Vital signs: Temperature 98.3 F 05/03/17 07:49 Pulse Rate 78 05/03/17 07:49 Respiratory Rate 20 05/03/17 07:49 Blood Pressure 109/66 05/03/17 07:49 Pulse Oximetry 91 05/03/17 07:49 Oxygen Delivery Method Room Air Body Mass Index: 33.0 - Constitutional Present: no acute distress, well nourished, obese, cooperative - Routine HEENT Exam Head: Present: normocephalic, atraumatic Eye: Present: EOMI, PERRL. Absent: conjunctival icterus ENT: Present: mucous membranes moist, mucous membranes dry - Routine Respiratory Exam Present: decreased breath sounds, CTA bilaterally. Absent: rhonchi, wheezes, crackles - Routine Cardiovascular Exam Present: RRR, S1, S2 - Routine Abdominal Exam Present: soft, non tender (NT to palpation. Not tender in RUQ), distended. Absent: normoactive bowel sounds (Quiet BS x 4 quadrants. ), tenderness - Routine Extremities Exam Present: edema (3+ pitting edema bilateral LE. ) - Routine Musculoskeletal Exam Musculoskeletal: Present: limited range of motion. Absent: no tenderness - Routine Skin Exam Present: intact, dry, warm. Absent: jaundice - Routine Neurological Exam Present: alert, oriented X3 - Routine Psychiatric Exam Present: normal affect, normal thought process, cooperative, good insight Results - Labs CBC & Chem 7: 05/01/17 04:59 05/03/17 04:31 Assessment and Plan (1) Weakness Current visit: No Status: Acute (2) Urinary tract infection Current visit: No Status: Acute (3) Complete rotator cuff tear or rupture of right shoulder, not specified as traumatic Current visit: No Status: Acute (4) Status post fall Current visit: No Status: Acute (5) Anticoagulated on Coumadin Current visit: No Status: Chronic (6) Dementia Current visit: No Status: Chronic (7) Elevated LFTs Current visit: Yes Status: Acute (8) Decreased appetite Current visit: Yes Status: Acute (9) Peripheral edema Current visit: Yes Status: Acute DVT Prophylaxis: Coumadin GI Prophylaxis: other (n/a) Resuscitation Status: Full Code Assessment and Plan: 05/03/17- *Right shoulder pain/injury s/p injection. Continue pain control, sling. *Elevated LFTs- Assess GB sono. Holding statin. Change Lortab to Oxycodone IR to decrease APAP burden. Repeat labs in AM. Monitor appetite. Right heart failure with congestion? Start diuretics. If no improvement, consider CT of abdomen. (Referred shoulder pain from RUQ on top of injury?) *Peripheral edema, Diastolic HF- Start Lasix, KCL- low dose as BP is lower. Monitor with metoprolol. *UTI- Abx completed. Repeat labs in am. D/W family. Sepsis Assessment - Evaluation Sepsis screening result: No Definite Risk Hospital Course Summary Disclaimer: The visit summary below is not to be considered part of the above Progress Note. Hospital Course: 05/03/17 11:51 *Right shoulder pain/injury s/p injection. Continue pain control, sling. *Elevated LFTs- Assess GB sono. Holding statin. Change Lortab to Oxycodone IR to decrease APAP burden. Repeat labs in AM. Monitor appetite. Right heart failure with congestion? Start diuretics. If no improvement, consider CT of abdomen. (Referred shoulder pain from RUQ on top of injury?) *Peripheral edema, Diastolic HF- Start Lasix, KCL- low dose as BP is lower. Monitor with metoprolol. *UTI- Abx completed. Repeat labs in am. D/W family. <Rylan Riley D - Last Filed: 05/03/17 15:54> Objective Vital signs: Temperature 98.3 F 05/03/17 07:49 Pulse Rate 78 05/03/17 07:49 Respiratory Rate 20 05/03/17 07:49 Blood Pressure 109/66 05/03/17 07:49 Pulse Oximetry 91 05/03/17 07:49 Oxygen Delivery Method Room Air Results - Labs CBC & Chem 7: 05/01/17 04:59 05/03/17 04:31 Assessment and Plan (1) Complete rotator cuff tear or rupture of right shoulder, not specified as traumatic Current visit: No Status: Acute (2) Status post fall Current visit: No Status: Acute (3) Weakness Current visit: No Status: Acute (4) Urinary tract infection Current visit: No Status: Acute (5) Anticoagulated on Coumadin Current visit: No Status: Chronic (6) Dementia Current visit: No Status: Chronic (7) Elevated LFTs Current visit: Yes Status: Acute (8) Decreased appetite Current visit: Yes Status: Acute (9) Peripheral edema Current visit: Yes Status: Acute Assessment and Plan: Have independently interviewed and examined pt. Chart reviewed. Case discussed with my [employer]. Above care plan developed with my supervision; agree with above. Doing okay. Still notes pain to right shoulder. Pt not sure if injection helped , but family members report they have seen improvement. Breathing stable. No chest pain. No nausea. Tolerating therapy. Lungs: decreased, no distress CV: regular AB: soft nt/nd MSE; awake alert Plan: Continue with therapy and pain control. US GB secondary to elevated liver enzymes. Monitor lab. Pt medically stable for IRU floor activities. Hospital Course Summary Disclaimer: The visit summary below is not to be considered part of the above Progress Note.
[2017-05-03] MEDS ORDERED: HYDROMORPHONE 2 MG/ML INJECTION IVP PRN (11:44)
[2017-05-03] MEDS ORDERED: WARFARIN 5 MG TABLET PO SCH (12:00)
[2017-05-03] MEDS ORDERED: WARFARIN 4 MG TABLET PO SCH (12:00)
[2017-05-03] MEDS: FUROSEMIDE 20 MG TABLET PO SCH (12:52)
[2017-05-03] MEDS: SALINE FLUSH 10ml SYRINGE IVF PRN ×2 (17:50→21:00)
[2017-05-03] MEDS: Oxycodone *IR* 5 MG TABLET PO PRN (21:29)
[2017-05-03] MEDS: ASPIRIN *EC* 81 MG TABLET PO SCH (21:29)
[2017-05-03] MEDS: DONEPEZIL 10 MG TABLET PO SCH (21:29)
[2017-05-03] MEDS: PHENYTOIN 100 MG CAPSULE PO SCH (21:30)
[2017-05-04] MEDS: CALCIUM CARBONATE 600 MG TABLET PO SCH (08:10)
[2017-05-04] MEDS: FUROSEMIDE 20 MG TABLET PO SCH (08:11)
[2017-05-04] MEDS: MULTI-VITAMIN PLAIN TABLET PO SCH (08:11)
[2017-05-04] MEDS: ISOSORBIDE MONONITRATE ER 30 MG TABLET PO SCH (08:11)
[2017-05-04] MEDS: Oxycodone *IR* 5 MG TABLET PO PRN (08:11)
[2017-05-04] MEDS: DOCUSATE SODIUM 100 MG CAPSULE PO SCH ×2 (08:11→21:47)
--- NOTE | 2017-05-04 08:52 | Ultrasound Report ---
Indication: Elevated LFTs PROCEDURE: US gall bladder: Encounter: Initial Comparison: None Technique: Grayscale and color Doppler sonographic imaging of the right upper quadrant of the abdomen was performed. Findings: Hepatic parenchyma is homogeneous without evidence for focal mass. The gallbladder is abnormal with multiple mobile shadowing gallstones. No wall thickening. Sonographic Lim's sign was reportedly negative. Both the intra and extrahepatic biliary system are of normal caliber with the common duct measuring 4 mm in dimension. Visualized portions of the head and body of the pancreas are unremarkable. The right kidney is present without collecting system dilatation. The right kidney measures 11.8 cm in length. Impression: Cholelithiasis without evidence of acute cholecystitis. .
--- NOTE | 2017-05-04 09:19 | Pharmacy Consult ---
Pharmacy Consult-Warfarin - Laboratory Information 04/29/17 04/30/17 05/02/17 11:34 04:44 04:50 INR 1.50 H 1.40 H 1.54 H 05/03/17 05/04/17 04:39 07:51 INR 1.85 H 2.00 H - Consult Information 86 y.o. male chronically anti-coagulated with Warfarin. Warfarin dosing per pharmacy protocol ordered. Patient home dose is Warfarin 10 mg po daily except 9 mg on Thursday and Thursday. 04/25/27 lab patient's INR was 4.15. goal INR = 2.0 to 3.0. Will give Warfarin 9 mg po today. The Pharmacy will continue to monitor & make adjustments accordingly. Thank you for the Protocol, Jeanette Light RPh
--- NOTE | 2017-05-04 11:59 | IRU Progress Note ---
- Subjective/Serverity of Illness Mr. Zepeda was evaluated in his room with his present. He continues to have difficulty with right shoulder pain and reduced ROM in his RUE as a result of his rotator cuff injury. He states that he is ambulating fairly well with quad cane and mod assist of one. Exam Vital Signs: Temperature 97.9 F 05/04/17 08:00 Pulse Rate 82 05/04/17 08:00 Respiratory Rate 16 05/04/17 08:00 Blood Pressure 147/69 H 05/04/17 08:00 Pulse Oximetry 96 05/04/17 08:00 Oxygen Delivery Method Room Air Height: 1.77 m Weight: 102.9 kg Body Mass Index: 33.0 - Constitutional Present: no acute distress, well nourished - Routine HEENT Exam Head: Present: normocephalic - Routine Respiratory Exam Absent: accessory muscle use, dyspnea, respiratory distress Comments: Lungs are clear to auscultation. No acute distress. - Routine Cardiovascular Exam Present: RRR, S1, S2, no murmur - Routine Abdominal Exam Present: soft, non distended, non tender. Absent: tenderness - Routine Extremities Exam Absent: edema - Routine Neurological Exam Present: alert - Routine Psychiatric Exam Present: normal affect Sepsis Assessment - Evaluation Sepsis screening result: No Definite Risk IRU A/P DVT Prophylaxis: Coumadin Resuscitation Status: Full Code - Course Hospital Course: Edilson Dominguez MD: 04/30/17 10:53 - Interventions to Obtain Goals PT Treatment Plan: Balance/Proprioception, Functional Activities, Gait Training , Patient/Family Education, Therapeutic Exercise OT Treatment Plan: ADL (Basic Care), Balance Training, IADL, Pt./Family Education, Ther. Exercise for ADL, UE Functional Training
[2017-05-04] MEDS ORDERED: WARFARIN 4 MG TABLET PO SCH (12:00)
[2017-05-04] MEDS ORDERED: WARFARIN 5 MG TABLET PO SCH (12:00)
[2017-05-04] MEDS: ASPIRIN *EC* 81 MG TABLET PO SCH (21:46)
[2017-05-04] MEDS: DONEPEZIL 10 MG TABLET PO SCH (21:46)
[2017-05-04] MEDS: SALINE FLUSH 10ml SYRINGE IVF PRN (21:47)
[2017-05-04] MEDS: PHENYTOIN 100 MG CAPSULE PO SCH (21:48)
[2017-05-05] MEDS: Oxycodone *IR* 5 MG TABLET PO PRN (01:30)
[2017-05-05] MEDS: ISOSORBIDE MONONITRATE ER 30 MG TABLET PO SCH (06:00)
[2017-05-05] MEDS: FUROSEMIDE 20 MG TABLET PO SCH (08:42)
[2017-05-05] MEDS: DOCUSATE SODIUM 100 MG CAPSULE PO SCH ×2 (08:42→21:14)
[2017-05-05] MEDS: MULTI-VITAMIN PLAIN TABLET PO SCH (08:42)
[2017-05-05] MEDS: CALCIUM CARBONATE 600 MG TABLET PO SCH (08:42)
[2017-05-05] MEDS ORDERED: WARFARIN 5 MG TABLET PO SCH (09:00)
--- NOTE | 2017-05-05 10:52 | Pharmacy Consult ---
Pharmacy Consult-Warfarin - Laboratory Information 04/29/17 04/30/17 05/02/17 11:34 04:44 04:50 INR 1.50 H 1.40 H 1.54 H 05/03/17 05/04/17 05/05/17 04:39 07:51 09:40 INR 1.85 H 2.00 H 2.33 H COUMADIN CONSULT (Recurring): Dx: History of TIA's Baseline INR = 2.33. I ordered to continue the Warfarin 9mg dose today and pharmacy will re-evaluate tomorrow. The pharmacy will continue to monitor and make adjustments accordingly. Thank you for the Warfarin Protocol, Nehemiah West RPh.
[2017-05-05] MEDS ORDERED: WARFARIN 6 MG TABLET PO SCH (12:00)
[2017-05-05] MEDS: ASPIRIN *EC* 81 MG TABLET PO SCH (21:14)
[2017-05-05] MEDS: DONEPEZIL 10 MG TABLET PO SCH (21:14)
[2017-05-05] MEDS: PHENYTOIN 100 MG CAPSULE PO SCH (21:14)
[2017-05-06] MEDS: Oxycodone *IR* 5 MG TABLET PO PRN ×2 (00:31→22:04)
[2017-05-06] MEDS: ISOSORBIDE MONONITRATE ER 30 MG TABLET PO SCH ×2 (04:46→05:40)
--- NOTE | 2017-05-06 08:14 | Pharmacy Consult ---
Pharmacy Consult-Warfarin - Laboratory Information 04/29/17 04/30/17 05/02/17 11:34 04:44 04:50 INR 1.50 H 1.40 H 1.54 H 05/03/17 05/04/17 05/05/17 04:39 07:51 09:40 INR 1.85 H 2.00 H 2.33 H 05/06/17 05:07 INR 2.59 H - Consult Information COUMADIN CONSULT (Recurring): Today's INR = 2.59. Will give Warfarin 8mg today. Will continue to monitor & make adjustments accordingly. Thank you.
[2017-05-06] MEDS: CALCIUM CARBONATE 600 MG TABLET PO SCH (09:10)
[2017-05-06] MEDS: DOCUSATE SODIUM 100 MG CAPSULE PO SCH ×2 (09:11→21:52)
[2017-05-06] MEDS: MULTI-VITAMIN PLAIN TABLET PO SCH (09:11)
[2017-05-06] MEDS: FUROSEMIDE 20 MG TABLET PO SCH (09:11)
--- NOTE | 2017-05-06 09:39 | Progress Note ---
<Suly Calderon - Last Filed: 05/06/17 09:35> Subjective: Fortunato was waking up for the day. He states that he did not rest well, he was up at 5 AM, but then was able to go back to sleep. He states his right shoulder hurts "off and on". According to physical therapy, however, he is significantly better. He doesn't like to wear his shoulder sling because his arm slips out of it, negating its purpose. He denies any chest pain or shortness of breath. He denies any abdominal pain or GI complaints. He told me that he has gallstones, but they don't bother him. Objective Vital signs: Temperature 99.3 F 05/06/17 08:00 Pulse Rate 81 05/06/17 08:00 Respiratory Rate 20 05/06/17 08:00 Blood Pressure 108/64 05/06/17 08:00 Pulse Oximetry 95 05/06/17 08:00 Oxygen Delivery Method Room Air Weight: 101.7 kg - Constitutional Present: no acute distress - Routine HEENT Exam ENT: Present: mucous membranes moist - Routine Respiratory Exam Present: CTA bilaterally Comments: Left eye ptosis, chronic - Routine Cardiovascular Exam Present: RRR, S1, S2, murmur - Routine Abdominal Exam Present: soft, normoactive bowel sounds, non distended, non tender - Routine Extremities Exam Present: edema (trace edema bilaterally) - Routine Musculoskeletal Exam Musculoskeletal: Present: moving extremities well - Routine Skin Exam Present: intact, dry, warm - Routine Neurological Exam Present: alert, oriented X3 - Routine Psychiatric Exam Present: normal affect, normal thought process Results - Labs CBC & Chem 7: 05/04/17 07:51 05/06/17 05:07 Assessment and Plan (1) Weakness Current visit: No Status: Acute (2) Urinary tract infection Current visit: No Status: Acute (3) Complete rotator cuff tear or rupture of right shoulder, not specified as traumatic Current visit: No Status: Acute (4) Status post fall Current visit: No Status: Acute (5) Anticoagulated on Coumadin Current visit: No Status: Chronic (6) Dementia Current visit: No Status: Chronic (7) Elevated LFTs Current visit: Yes Status: Acute (8) Decreased appetite Current visit: Yes Status: Acute (9) Peripheral edema Current visit: Yes Status: Acute Assessment and Plan: Right shoulder pain, status post subacromial injection -Pain is much improved and mobility and function has also improved, per PT report Elevated LFTs -Gallbladder sono showed cholelithiasis without cholecystitis -Acetaminophen has been discontinued -Trending down, continue to follow Diastolic heart failure (echo done in 2015 showed an EF of 55-60%, normal right ventricular function, normal valves. Heart catheterization in November 2015 showed multivessel disease, but he was not felt to be a surgical candidate) -Diuretics were started with the thought that the elevated LFTs could be related to right heart failure with liver congestion -renal function remains intact -Potassium is climbing, we'll hold KCl for now [facility] records reviewed. Dr. Hathaway is his position classification manager Sepsis Assessment - Evaluation Sepsis screening result: No Definite Risk Hospital Course Summary Disclaimer: The visit summary below is not to be considered part of the above Progress Note. Hospital Course: 05/03/17 11:51 *Right shoulder pain/injury s/p injection. Continue pain control, sling. *Elevated LFTs- Assess GB sono. Holding statin. Change Lortab to Oxycodone IR to decrease APAP burden. Repeat labs in AM. Monitor appetite. Right heart failure with congestion? Start diuretics. If no improvement, consider CT of abdomen. (Referred shoulder pain from RUQ on top of injury?) *Peripheral edema, Diastolic HF- Start Lasix, KCL- low dose as BP is lower. Monitor with metoprolol. *UTI- Abx completed. Repeat labs in am. D/W family. 05/06/17 09:53 Right shoulder pain, status post subacromial injection -Pain is much improved and mobility and function has also improved, per PT report Elevated LFTs -Gallbladder sono showed cholelithiasis without cholecystitis -Acetaminophen has been discontinued -Trending down, continue to follow Diastolic heart failure (echo done in 2015 showed an EF of 55-60%, normal right ventricular function, normal valves. Heart catheterization in November 2015 showed multivessel disease, but he was not felt to be a surgical candidate) -Diuretics were started with the thought that the elevated LFTs could be related to right heart failure with liver congestion -renal function remains intact -Potassium is climbing, we'll hold KCl for now <Dulce Finch - Last Filed: 05/06/17 16:32> Objective Vital signs: Temperature 99.3 F 05/06/17 08:00 Pulse Rate 81 05/06/17 08:00 Respiratory Rate 20 05/06/17 08:00 Blood Pressure 108/64 05/06/17 08:00 Pulse Oximetry 95 05/06/17 08:00 Oxygen Delivery Method Room Air Results - Labs CBC & Chem 7: 05/04/17 07:51 05/06/17 05:07 Assessment and Plan (1) Weakness Current visit: No Status: Acute (2) Urinary tract infection Current visit: No Status: Acute (3) Complete rotator cuff tear or rupture of right shoulder, not specified as traumatic Current visit: No Status: Acute (4) Status post fall Current visit: No Status: Acute (5) Anticoagulated on Coumadin Current visit: No Status: Chronic (6) Dementia Current visit: No Status: Chronic (7) Elevated LFTs Current visit: Yes Status: Acute (8) Decreased appetite Current visit: Yes Status: Acute (9) Peripheral edema Current visit: Yes Status: Acute Assessment and Plan: I have independently evaluated and examined this patient. I reviewed the chart, the patient's history, and the CHRONIC DISEASE MANAGER's documented findings as above. We discussed and formulated the assessment and plan as above with additions as below: Mr. Zepeda was seen with family members at the bedside. He indicated that his shoulder feels better but he's having difficulty flexing the PIP of his right long finger. He does not recall an injury and there is no erythema or warmth. He denied dyspnea or significant lower extremity edema and family members described improvement in his ability to ambulate. Respirations are nonlabored and breath sounds clear anteriorly. Significant degenerative joint disease evident in small joints of the hands, decreased range of motion in multiple small joints but greatest in the PIP of the long finger right hand which has minimal active flexion, passively I can flex the PIP approximately 40. The joint is not warm or erythematous and there is no active synovitis present. Medically stable. INR stable on 8-9 mg warfarin daily. Antibiotics completed on 05/02-repeat UA. Transaminases fluctuating but overall trend toward improvement-will require outpatient reassessment and may require CT to evaluate for fatty liver. In addition to above problems please add: #1 degenerative joint disease. Hospital Course Summary Disclaimer: The visit summary below is not to be considered part of the above Progress Note.
--- NOTE | 2017-05-06 11:30 | IRU Progress Note ---
- Subjective/Serverity of Illness Mr. Zepeda is improving regarding his right shoulder per OT. He continues to report some sharp epigastric pains at times. This is somewhat chronic. He does have gall stones but no evidence of acute cholecystitis. No actual chest pains. Exam Vital Signs: Temperature 99.3 F 05/06/17 08:00 Pulse Rate 81 05/06/17 08:00 Respiratory Rate 20 05/06/17 08:00 Blood Pressure 108/64 05/06/17 08:00 Pulse Oximetry 95 05/06/17 08:00 Oxygen Delivery Method Room Air Height: 1.77 m Weight: 101.7 kg Body Mass Index: 33.0 - Constitutional Present: mild distress - Routine HEENT Exam Head: Present: normocephalic - Routine Neck Exam Present: supple - Routine Cardiovascular Exam Present: RRR, S1, S2 - Routine Abdominal Exam Present: soft, normoactive bowel sounds, non distended, non tender - Detailed Abdominal Exam Palpation/Percussion: Absent: hepatomegaly, splenomegaly, tympany - Routine Extremities Exam Present: non tender. Absent: cyanosis, edema - Routine Skin Exam Present: intact (He refers to his Xiphoid process as being a bit tender. Reassured him this was a normal body structure.) Sepsis Assessment - Evaluation Sepsis screening result: No Definite Risk IRU A/P (1) Complete tear of rotator cuff Current visit: No Status: Acute Continues to have discomfort in his right shoulder which impacts his ability to dress himself. He is improving. (2) Urinary tract infection Qualifiers: Urinary tract infection type: acute cystitis Hematuria presence: without hematuria Qualified Code(s): N30.00 - Acute cystitis without hematuria Current visit: No Status: Acute Per medical team. (3) Elevated LFTs Current visit: Yes Status: Acute Work up neg for acute cholecystitis. His abd is non-tender. DVT Prophylaxis: Coumadin Resuscitation Status: Full Code - Course Hospital Course: Edilson Dominguez MD: 04/30/17 10:53 - Interventions to Obtain Goals PT Treatment Plan: Balance/Proprioception, Functional Activities, Gait Training , Patient/Family Education, Therapeutic Exercise OT Treatment Plan: ADL (Basic Care), Balance Training, IADL, Pt./Family Education, Ther. Exercise for ADL, UE Functional Training
[2017-05-06] MEDS ORDERED: FALL RISK - PHARMACY CONSULT XX PRN (11:31)
[2017-05-06] MEDS ORDERED: WARFARIN 4 MG TABLET PO SCH (12:00)
[2017-05-06] MEDS: DONEPEZIL 10 MG TABLET PO SCH (21:52)
[2017-05-06] MEDS: PHENYTOIN 100 MG CAPSULE PO SCH (21:52)
[2017-05-06] MEDS: ASPIRIN *EC* 81 MG TABLET PO SCH (21:52)
[2017-05-07] MEDS: ISOSORBIDE MONONITRATE ER 30 MG TABLET PO SCH (06:11)
[2017-05-07] MEDS: CALCIUM CARBONATE 600 MG TABLET PO SCH (08:28)
[2017-05-07] MEDS: MULTI-VITAMIN PLAIN TABLET PO SCH (08:28)
[2017-05-07] MEDS: DOCUSATE SODIUM 100 MG CAPSULE PO SCH ×2 (08:29→20:03)
[2017-05-07] MEDS: FUROSEMIDE 20 MG TABLET PO SCH (08:30)
[2017-05-07] MEDS: Oxycodone *IR* 5 MG TABLET PO PRN (10:11)
--- NOTE | 2017-05-07 11:12 | Pharmacy Consult ---
Pharmacy Consult-Warfarin - Laboratory Information 04/29/17 04/30/17 05/02/17 11:34 04:44 04:50 INR 1.50 H 1.40 H 1.54 H 05/03/17 05/04/17 05/05/17 04:39 07:51 09:40 INR 1.85 H 2.00 H 2.33 H 05/06/17 05/07/17 05:07 09:04 INR 2.59 H 3.21 H - Consult Information COUMADIN CONSULT (Recurring): Today's INR = 3.21. Will give NO Warfarin today. Will continue to monitor & make adjustments accordingly. Thank you.
--- NOTE | 2017-05-07 11:22 | IRU Progress Note ---
- Subjective/Serverity of Illness Mr. Zepeda was evaluated in his room with a relative present. He would really like to go home as soon as possible. However he continues to have quite a bit of difficulty with certain activities. That being said, he is improving. In particular he is improving with toilet transfer, breathing and some other activities as well. Continues to have a lot of discomfort with the right shoulder. Range of motion is reduced. It is improving however. Medically, he does have history of diastolic heart failure. He has atrial fibrillation and is on warfarin. His INR is slightly elevated today. Pharmacy monitoring and adjusting. Review of systems performed. He denies any nausea or vomiting. He has no shortness of breath. Denies any chest pain. Exam Vital Signs: Temperature 97.8 F 05/07/17 08:00 Pulse Rate 83 05/07/17 08:00 Respiratory Rate 18 05/07/17 08:00 Blood Pressure 104/55 05/07/17 08:00 Pulse Oximetry 95 05/07/17 08:00 Oxygen Delivery Method Room Air Height: 1.77 m Weight: 101.7 kg Body Mass Index: 33.0 - Constitutional Present: no acute distress, well nourished, well developed - Routine HEENT Exam Head: Present: normocephalic Eye: Present: EOMI Comments: Left eyelid ptosis. - Routine Neck Exam Present: supple, full ROM - Routine Respiratory Exam Present: CTA bilaterally. Absent: dyspnea - Routine Cardiovascular Exam Present: RRR, S1, S2 - Routine Abdominal Exam Present: soft, normoactive bowel sounds, non distended - Routine Extremities Exam Present: no edema. Absent: cyanosis - Detailed Upper Extremity Exam Shoulder/Upper Arm: Right decreased ROM (continues to have discomfort and reduced range of motion regarding right shoulder.) - Routine Skin Exam Absent: erythema - Routine Neurological Exam Present: alert Memory deficit noted. He would like to go home. He is not quite stable for that. Continue working with therapies. - Routine Psychiatric Exam Present: cooperative. Absent: good insight, good judgment Comments: Some cognitive dysfunction noted. Results IRU - Labs Labs: Reviewed lab including INR which is slightly elevated. Sepsis Assessment - Evaluation Sepsis screening result: No Definite Risk IRU A/P (1) Complete tear of rotator cuff Current visit: No Status: Acute Continues to improve although still having quite a bit of discomfort and reduced range of motion involving the right shoulder. However he did well with bathing today apparently. Toilet transfers improving. (2) Urinary tract infection Qualifiers: Urinary tract infection type: acute cystitis Hematuria presence: without hematuria Qualified Code(s): N30.00 - Acute cystitis without hematuria Current visit: No Status: Acute Per medical team. (3) Elevated LFTs Current visit: Yes Status: Acute This is been assessed. No evidence of acute cholecystitis. He denies abdominal pain at present. His appetite remains good. DVT Prophylaxis: Coumadin Resuscitation Status: Full Code - Course Hospital Course: Edilson Dominguez MD: 04/30/17 10:53 - Interventions to Obtain Goals PT Treatment Plan: Balance/Proprioception, Functional Activities, Gait Training , Patient/Family Education, Therapeutic Exercise OT Treatment Plan: ADL (Basic Care), Balance Training, IADL, Pt./Family Education, Ther. Exercise for ADL, UE Functional Training
[2017-05-07] MEDS: ASPIRIN *EC* 81 MG TABLET PO SCH ×2 (20:03→21:30)
[2017-05-07] MEDS: PHENYTOIN 100 MG CAPSULE PO SCH ×2 (20:03→21:30)
[2017-05-07] MEDS: DONEPEZIL 10 MG TABLET PO SCH ×2 (20:03→21:30)
[2017-05-08] MEDS: Oxycodone *IR* 5 MG TABLET PO PRN (01:48)
[2017-05-08] MEDS: ISOSORBIDE MONONITRATE ER 30 MG TABLET PO SCH ×2 (05:20→05:30)
--- NOTE | 2017-05-08 07:42 | Pharmacy Consult ---
Pharmacy Consult-Warfarin - Laboratory Information 04/29/17 04/30/17 05/02/17 11:34 04:44 04:50 INR 1.50 H 1.40 H 1.54 H 05/03/17 05/04/17 05/05/17 04:39 07:51 09:40 INR 1.85 H 2.00 H 2.33 H 05/06/17 05/07/17 05/08/17 05:07 09:04 04:34 INR 2.59 H 3.21 H 2.59 H - Consult Information Will give warfarin 7.5mg po today. Thank you.
[2017-05-08 08:04] VITALS: BP 108/65; PULSE 80; RESP 20; TEMP 98.3; O2SAT 93
[2017-05-08] MEDS: CALCIUM CARBONATE 600 MG TABLET PO SCH (08:46)
[2017-05-08] MEDS: MULTI-VITAMIN PLAIN TABLET PO SCH (08:46)
[2017-05-08] MEDS: FUROSEMIDE 20 MG TABLET PO SCH (08:46)
[2017-05-08] MEDS: DOCUSATE SODIUM 100 MG CAPSULE PO SCH (08:46)
--- NOTE | 2017-05-08 10:03 | Progress Note ---
Subjective: Fortunato was seen while working with physical therapy. He is in good spirits. He was just walking outside and that made him feel better. He complains of bilateral shoulder pain and thoracic back pain, which he describes as chronic. Currently, he is asking for a back brace to help her move around. The physical therapist states that he saw commercial of a person wearing a back brace and then he was able to play football. I tried to explain to Fortunato that the back brace would likely not help, and would probably hinder his mobility. He otherwise denies any difficulty breathing. No abdominal pain or GI complaints. His appetite has been stable. Objective Vital signs: Temperature 98.3 F 05/08/17 07:41 Pulse Rate 80 05/08/17 07:41 Respiratory Rate 20 05/08/17 07:41 Blood Pressure 108/65 05/08/17 07:41 Pulse Oximetry 93 05/08/17 07:41 Oxygen Delivery Method Room Air Body Mass Index: 33.0 - Constitutional Present: no acute distress, well nourished, well developed, obese - Routine HEENT Exam ENT: Present: mucous membranes moist - Routine Respiratory Exam Present: CTA bilaterally - Routine Cardiovascular Exam Present: RRR, S1, S2 - Routine Abdominal Exam Present: soft, normoactive bowel sounds, non distended, non tender - Routine Extremities Exam Present: edema (trace), pulses intact - Routine Skin Exam Present: intact, dry, warm - Routine Neurological Exam Present: alert - Routine Psychiatric Exam Present: normal affect, normal thought process Results - Labs CBC & Chem 7: 05/04/17 07:51 05/08/17 04:34 Assessment and Plan (1) Weakness Current visit: No Status: Acute (2) Urinary tract infection Current visit: No Status: Acute (3) Complete rotator cuff tear or rupture of right shoulder, not specified as traumatic Current visit: No Status: Acute (4) Status post fall Current visit: No Status: Acute (5) Anticoagulated on Coumadin Current visit: No Status: Chronic (6) Dementia Current visit: No Status: Chronic (7) Elevated LFTs Current visit: Yes Status: Acute (8) Decreased appetite Current visit: Yes Status: Acute (9) Peripheral edema Current visit: Yes Status: Acute (10) Degenerative joint disease Current visit: Yes Status: Acute Assessment and Plan: Degenerative joint disease, generalized -Mobility and function gradually improving -Pain is not as severe following right shoulder subacromial injection UTI, resolved -Antibiotics were completed on 05/02/17 -Repeat urinalysis was negative CMP repeated -Renal function is stable -LFTs remain mildly elevated -May following complete workup of transaminitis in outpatient setting Sepsis Assessment - Evaluation Sepsis screening result: No Definite Risk Hospital Course Summary Disclaimer: The visit summary below is not to be considered part of the above Progress Note. Hospital Course: 05/03/17 11:51 *Right shoulder pain/injury s/p injection. Continue pain control, sling. *Elevated LFTs- Assess GB sono. Holding statin. Change Lortab to Oxycodone IR to decrease APAP burden. Repeat labs in AM. Monitor appetite. Right heart failure with congestion? Start diuretics. If no improvement, consider CT of abdomen. (Referred shoulder pain from RUQ on top of injury?) *Peripheral edema, Diastolic HF- Start Lasix, KCL- low dose as BP is lower. Monitor with metoprolol. *UTI- Abx completed. Repeat labs in am. D/W family. 05/06/17 09:53 Right shoulder pain, status post subacromial injection -Pain is much improved and mobility and function has also improved, per PT report Elevated LFTs -Gallbladder sono showed cholelithiasis without cholecystitis -Acetaminophen has been discontinued -Trending down, continue to follow Diastolic heart failure (echo done in 2015 showed an EF of 55-60%, normal right ventricular function, normal valves. Heart catheterization in November 2015 showed multivessel disease, but he was not felt to be a surgical candidate) -Diuretics were started with the thought that the elevated LFTs could be related to right heart failure with liver congestion -renal function remains intact -Potassium is climbing, we'll hold KCl for now 05/08/17 10:05 Degenerative joint disease, generalized -Mobility and function gradually improving -Pain is not as severe following right shoulder subacromial injection UTI, resolved -Antibiotics were completed on 05/02/17 -Repeat urinalysis was negative CMP repeated -Renal function is stable -LFTs remain mildly elevated -May following complete workup of transaminitis in outpatient setting
--- NOTE | 2017-05-08 10:35 | IRU Progress Note ---
- Subjective/Serverity of Illness Patient was evaluated with his and another family member present. He desperately would like to go back home. He has improved significantly with intensive therapies. He states that he is able to dress himself. Continues to have pain in the right shoulder. It is improving however. Range of motion is reduced. He states that his bowels are moving fine. He denies any abdominal pain. He is noted to have chronic kidney disease. Also has history of some mild elevation of liver enzymes. Exam Vital Signs: Temperature 98.3 F 05/08/17 07:41 Pulse Rate 80 05/08/17 07:41 Respiratory Rate 20 05/08/17 07:41 Blood Pressure 108/65 05/08/17 07:41 Pulse Oximetry 93 05/08/17 07:41 Oxygen Delivery Method Room Air Height: 1.77 m Weight: 101.7 kg Body Mass Index: 33.0 - Constitutional Present: no acute distress - Routine HEENT Exam Head: Present: normocephalic Eye: Present: EOMI - Routine Neck Exam Present: supple, full ROM - Routine Respiratory Exam Present: CTA bilaterally - Routine Cardiovascular Exam Present: RRR, S1, S2, no murmur - Routine Abdominal Exam Present: soft, normoactive bowel sounds, non distended, non tender - Routine Extremities Exam Comments: Right shoulder range of motion reduced. Difficulty with internal rotation. Unable to fully abduct. However range of motion has improved. Strength is better as well. Pulses are good. No edema. - Routine Neurological Exam Present: alert Short-term memory issues noted. Results IRU - Labs Labs: Reviewed recent labs including liver enzymes. Generally they seem to be trending downward. Sepsis Assessment - Evaluation Sepsis screening result: No Definite Risk IRU A/P (1) Complete tear of rotator cuff Current visit: No Status: Acute As noted previously, range of motion is improved although still limited. He is able to dress himself. (2) Urinary tract infection Qualifiers: Urinary tract infection type: acute cystitis Hematuria presence: without hematuria Qualified Code(s): N30.00 - Acute cystitis without hematuria Current visit: No Status: Acute Resolved. (3) Elevated LFTs Current visit: Yes Status: Acute DVT Prophylaxis: Coumadin Resuscitation Status: Full Code - Course Hospital Course: Edilson Dominguez MD: 06/29/17 10:53 - Interventions to Obtain Goals PT Treatment Plan: Balance/Proprioception, Functional Activities, Gait Training , Patient/Family Education, Therapeutic Exercise OT Treatment Plan: ADL (Basic Care), Balance Training, IADL, Pt./Family Education, Ther. Exercise for ADL, UE Functional Training
--- NOTE | 2017-05-08 10:38 | Discharge Instructions ---
Discharge Plan - Med Rec/Dispo Referrals/Follow Up: Trinidad Solitario, [Family Provider] - 1 Week (Dr. Magalis Solitario on 05/27/17 at 10:40 am for Hosp. follow-up. Monitor INR; f/u on elevated LFTs. INR and CMP to be drawn on 05/11. ) Additional Instructions: Mr. Zepeda was on Lasix 20 mg + KDur 20 mEq from 05/03/17-05/08/17 for peripheral edema. This was stopped at discharge since he had some borderline blood pressures. Coumadin dose was changed to 7.5 mg daily. Please check INR on 05/11/17 and fax results to Dr. Solitario for Warfarin dosing. Repeat CMP on 05/11/17 and fax results to Dr. Solitario. May need outpatient evaluation for elevated LFTs. GB sono showed cholelithiasis without cholecystitis. Aurora 7.5/325 was continued at discharge; if continues to trend up, may need to DC acetaminophen. Prescriptions: New Warfarin Sodium 7.5 mg PO DAILY #30 tablet Continue Phenytoin Sodium Extended 500 mg PO HS #0 Multivitamin [Multi-Day Vitamins] 1 tab PO DAILY #0 Glucosamine Sulfate Dipot Chlr [Glucosamine] 1,000 mg PO DAILY #0 Cyanocobalamin (Vitamin B-12) (Vitamin B-12) 1 tab PO DAILY #0 Aspirin [Adult Low Dose Aspirin EC] 81 mg PO HS Docusate Sodium [Stool Softener] 100 mg PO BID Metoprolol Succinate 25 mg PO DAILY Donepezil HCl [Aricept] 10 mg PO HS Hydrocodone/APAP 10/325 [Aurora 10/325] 1 tab PO Q4H PRN #30 tablet PRN Reason: Pain Calcium Carbonate 600 mg PO DAILY Isosorbide Mononitrate ER [Imdur] 30 mg PO DAILY Discontinued Warfarin Sodium 9 mg PO SUWE NS FLUSH BAG 500ml [Normal Saline] 500 ml IV PRN PRN iv.soln PRN Reason: Flushing Warfarin Sodium 10 mg PO MOTUTHFRSA Hydromorphone [Dilaudid] 0.5 mg IVP Q2H PRN vial PRN Reason: Pain
--- NOTE | 2017-05-08 11:07 | Discharge Instructions ---
Discharge Plan - Med Rec/Dispo Referrals/Follow Up: Trinidad Solitario, [Family Provider] - 1 Week (Dr. Magalis Solitario on 05/27/17 at 10:40 am for Hosp. follow-up. Monitor INR; f/u on elevated LFTs. INR and CMP to be drawn on 05/11. ) Additional Instructions: Mr. Zepeda was on Lasix 20 mg + KDur 20 mEq from 05/03/17-05/08/17 for peripheral edema. This was stopped at discharge since he had some borderline blood pressures. Coumadin dose was changed to 7.5 mg daily. Please check INR on 05/11/17 and fax results to Dr. Solitario for Warfarin dosing. Repeat CMP on 05/11/17 and fax results to Dr. Solitario. May need outpatient evaluation for elevated LFTs. GB sono showed cholelithiasis without cholecystitis. [place] 7.5/325 was continued at discharge; if continues to trend up, may need to DC acetaminophen. Prescriptions: New Warfarin Sodium 7.5 mg PO DAILY #30 tablet Continue Phenytoin Sodium Extended 500 mg PO HS #0 Multivitamin [Multi-Day Vitamins] 1 tab PO DAILY #0 Glucosamine Sulfate Dipot Chlr [Glucosamine] 1,000 mg PO DAILY #0 Cyanocobalamin (Vitamin B-12) (Vitamin B-12) 1 tab PO DAILY #0 Aspirin [Adult Low Dose Aspirin EC] 81 mg PO HS Docusate Sodium [Stool Softener] 100 mg PO BID Metoprolol Succinate 25 mg PO DAILY Donepezil HCl [Aricept] 10 mg PO HS Hydrocodone/APAP 10/325 [[place] 10/325] 1 tab PO Q4H PRN #30 tablet PRN Reason: Pain Calcium Carbonate 600 mg PO DAILY Isosorbide Mononitrate ER [Imdur] 30 mg PO DAILY Discontinued Warfarin Sodium 9 mg PO SUWE NS FLUSH BAG 500ml [Normal Saline] 500 ml IV PRN PRN iv.soln PRN Reason: Flushing Warfarin Sodium 10 mg PO MOTUTHFRSA Hydromorphone [Dilaudid] 0.5 mg IVP Q2H PRN vial PRN Reason: Pain Discharge Instructions/Outpatient Orders: Final Provider Discharge Instructions Location: Determined By Patient - Disposition 01 Discharged Home, Self-Care
--- NOTE | 2017-05-08 11:43 | Discharge Summary ---
Discharge Information Date of admission: 04/28/17 21:00 Attending Physician: Edilson Dominguez MD Primary care physician: Trinidad Solitario DO Consults: 04/28/17 22:26 IRU Screening [Inpatient Rehab Screening] [CONS] Routine IRU Screening [Inpatient Rehab Screening] [CONS] Routine Physician Consult [CONS] Routine Consulting Provider: Kar Kate Reason For Exam: R arm pain (specially shoulder) Ordering Provider has Notified Draw Operator: No Comment: Will be calling soon 04/29/17 10:10 Physician Consult [CONS] Routine Consulting Provider: Kar Kate Reason For Exam: continued right shoulder pain. ? injection Ordering Provider has Notified Draw Operator: Yes Comment: notified 05/01/17 Pharmacy Consult [CONS] Routine Pharmacy Consult: Coumadin/Warfarin - Discharge Diagnosis (1) Complete tear of rotator cuff Status: Acute (2) Urinary tract infection Qualifiers: Urinary tract infection type: acute cystitis Hematuria presence: without hematuria Qualified Code(s): N30.00 - Acute cystitis without hematuria Status: Acute (3) Elevated LFTs Status: Acute - Laboratory Labs: 05/04/17 07:51 05/08/17 04:34 History of Present Illness HPI: 05/08/17 11:36 Mr. Zepeda was initially admitted to acute care after he had fallen at home. He had hit his head although there was no loss of consciousness. Initial evaluation revealed a negative CT scan. In addition, he had recently been treated for a urinary tract infection as an outpatient. He did have some confusion. The patient also had injured his right arm when he fell. He does have rotator cuff injury in this regard. He was evaluated and felt to be a good candidate for acute rehabilitation with the need for multiple therapies and intervention in order to allow him to return to his previous level of care at home as well as to prevent a readmission. Hospital Course This is a general summary of the patient's hospital course. For more details refer to the complete medical record. Mr. Zepeda was admitted to the inpatient rehabilitation unit from acute care. He had fallen at home with head injury without loss of consciousness. CT scan was negative. He also injured his right shoulder and did have a rotator cuff tear. It was determined that he would benefit from intensive therapies to include occupational therapy and physical therapy. Medically he had recent rotator cuff injury with reduced range of motion of the right shoulder, recent urinary tract infection, underlying confusion from time to time felt to be secondary to sepsis and encephalopathy. His care on the rehabilitation unit required a multidisciplinary approach with medical oversight. The patient was able to participate in 3 hours of therapy daily and benefited from this. With regard to his medical status, he continued to display evidence of some short-term memory loss. He was cooperative with therapy however. He had no further evidence of urinary tract infection. He remained afebrile. 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 His INR was monitored. Coumadin was adjusted. With regard to occupational therapy, he improved as follows: Grooming: Improved from minimal assistance to standby assistance Bathing: Improved from moderate assistance to standby assistance. Upper extremity dressing: Improved from moderate assistance to modified independent functioning. Lower extremity dressing: Improved from total assistance to standby assistance. Physical therapy also worked with the patient intensely and he tolerated this well. Physical therapy improvement as noted: Sit to stand improved from maximal assistance of 1 to standby assistance Stand to sit: Improved from moderate assistance to standby assistance. He was treated with an individualized plan of care using a multidisciplinary approach with medical oversight. Family was involved and his was instructed in further exercise at home with regard to his right arm. He was felt to be stable for discharge on 05/08/2017. Arrangements were made. Total time involved with patient interview, examination, review of record, discussion with family () and preparation of the record was greater than 30 minutes, although not continuous minutes. Hospital course: 05/03/17 11:51 *Right shoulder pain/injury s/p injection. Continue pain control, sling. *Elevated LFTs- Assess GB sono. Holding statin. Change Lortab to Oxycodone IR to decrease APAP burden. Repeat labs in AM. Monitor appetite. Right heart failure with congestion? Start diuretics. If no improvement, consider CT of abdomen. (Referred shoulder pain from RUQ on top of injury?) *Peripheral edema, Diastolic HF- Start Lasix, KCL- low dose as BP is lower. Monitor with metoprolol. *UTI- Abx completed. Repeat labs in am. D/W family. 05/06/17 09:53 Right shoulder pain, status post subacromial injection -Pain is much improved and mobility and function has also improved, per PT report Elevated LFTs -Gallbladder sono showed cholelithiasis without cholecystitis -Acetaminophen has been discontinued -Trending down, continue to follow Diastolic heart failure (echo done in 2015 showed an EF of 55-60%, normal right ventricular function, normal valves. Heart catheterization in November 2015 showed multivessel disease, but he was not felt to be a surgical candidate) -Diuretics were started with the thought that the elevated LFTs could be related to right heart failure with liver congestion -renal function remains intact -Potassium is climbing, we'll hold KCl for now 05/08/17 10:05 Degenerative joint disease, generalized -Mobility and function gradually improving -Pain is not as severe following right shoulder subacromial injection UTI, resolved -Antibiotics were completed on 05/02/17 -Repeat urinalysis was negative CMP repeated -Renal function is stable -LFTs remain mildly elevated -May following complete workup of transaminitis in outpatient setting Time spent with patient: discharge greater than 30 minutes (total time spent with patient, family, reviewing records, and preparing the record was greater than 30 minutes.) Discharge Plan - Med Rec/Dispo Referrals/Follow Up: Trinidad Solitario DO [Family Provider] - 1 Week (Dr. Magalis Solitario on 05/27/17 at 10:40 am for Hosp. follow-up. Monitor INR; f/u on elevated LFTs. INR and CMP to be drawn on 05/11. ) Additional Instructions: Mr. Zepeda was on Lasix 20 mg + KDur 20 mEq from 05/03/17-05/08/17 for peripheral edema. This was stopped at discharge since he had some borderline blood pressures. Coumadin dose was changed to 7.5 mg daily. Please check INR on 05/11/17 and fax results to Dr. Solitario for Warfarin dosing. Repeat CMP on 05/11/17 and fax results to Dr. Solitario. May need outpatient evaluation for elevated LFTs. GB sono showed cholelithiasis without cholecystitis. [place] 7.5/325 was continued at discharge; if continues to trend up, may need to DC acetaminophen. Prescriptions: New Warfarin Sodium 7.5 mg PO DAILY #30 tablet Continue Phenytoin Sodium Extended 500 mg PO HS #0 Multivitamin [Multi-Day Vitamins] 1 tab PO DAILY #0 Glucosamine Sulfate Dipot Chlr [Glucosamine] 1,000 mg PO DAILY #0 Cyanocobalamin (Vitamin B-12) (Vitamin B-12) 1 tab PO DAILY #0 Aspirin [Adult Low Dose Aspirin EC] 81 mg PO HS Docusate Sodium [Stool Softener] 100 mg PO BID Metoprolol Succinate 25 mg PO DAILY Donepezil HCl [Aricept] 10 mg PO HS Hydrocodone/APAP 10/325 [[place] 10/325] 1 tab PO Q4H PRN #30 tablet PRN Reason: Pain Calcium Carbonate 600 mg PO DAILY Isosorbide Mononitrate ER [Imdur] 30 mg PO DAILY Discontinued Warfarin Sodium 9 mg PO SUWE NS FLUSH BAG 500ml [Normal Saline] 500 ml IV PRN PRN iv.soln PRN Reason: Flushing Warfarin Sodium 10 mg PO MOTUTHFRSA Hydromorphone [Dilaudid] 0.5 mg IVP Q2H PRN vial PRN Reason: Pain Discharge Instructions/Outpatient Orders: Final Provider Discharge Instructions Location: Determined By Patient - Disposition 01 Discharged Home, Self-Care
[2017-05-08] MEDS ORDERED: WARFARIN 7.5 MG TABLET PO SCH (12:00)
--- NOTE | 2017-05-08 12:15 | Discharge Instructions ---
Discharge Plan - Med Rec/Dispo Referrals/Follow Up: Trinidad Solitario, [Family Provider] - 1 Week (Dr. Magalis Solitario on 05/27/17 at 10:40 am for Hosp. follow-up. Monitor INR; f/u on elevated LFTs. INR and CMP to be drawn on 05/11. ) Additional Instructions: Mr. Zepeda was on Lasix 20 mg + KDur 20 mEq from 05/03/17-05/08/17 for peripheral edema. This was stopped at discharge since he had some borderline blood pressures. Coumadin dose was changed to 7.5 mg daily. Please check INR on 05/11/17 and fax results to Dr. Solitario for Warfarin dosing. Repeat CMP on 05/11/17 and fax results to Dr. Solitario. May need outpatient evaluation for elevated LFTs. GB sono showed cholelithiasis without cholecystitis. [place] 7.5/325 was continued at discharge; if continues to trend up, may need to DC acetaminophen. Prescriptions: New Warfarin Sodium 7.5 mg PO DAILY #30 tablet Continue Phenytoin Sodium Extended 500 mg PO HS #0 Multivitamin [Multi-Day Vitamins] 1 tab PO DAILY #0 Glucosamine Sulfate Dipot Chlr [Glucosamine] 1,000 mg PO DAILY #0 Cyanocobalamin (Vitamin B-12) (Vitamin B-12) 1 tab PO DAILY #0 Aspirin [Adult Low Dose Aspirin EC] 81 mg PO HS Docusate Sodium [Stool Softener] 100 mg PO BID Metoprolol Succinate 25 mg PO DAILY Donepezil HCl [Aricept] 10 mg PO HS Hydrocodone/APAP 10/325 [[place] 10/325] 1 tab PO Q4H PRN #30 tablet PRN Reason: Pain Calcium Carbonate 600 mg PO DAILY Isosorbide Mononitrate ER [Imdur] 30 mg PO DAILY Discontinued Warfarin Sodium 9 mg PO SUWE NS FLUSH BAG 500ml [Normal Saline] 500 ml IV PRN PRN iv.soln PRN Reason: Flushing Warfarin Sodium 10 mg PO MOTUTHFRSA Hydromorphone [Dilaudid] 0.5 mg IVP Q2H PRN vial PRN Reason: Pain Discharge Instructions/Outpatient Orders: Final Provider Discharge Instructions Location: Determined By Patient - Disposition 01 Discharged Home, Self-Care
--- NOTE | 2017-05-28 06:44 | IRU Plan of Care ---
U Overall Plan of Care - Date Date: 04/30/17 (Seen and evaluated 04/30/17) - Patient Impairments (1) Weakness Code(s): R53.1 - Weakness Status: Acute Classification: Present on IRF Admission, IRF Tx That Should Address Diagnosis (2) Urinary tract infection Qualifiers: Urinary tract infection type: acute cystitis Hematuria presence: without hematuria Qualified Code(s): N30.00 - Acute cystitis without hematuria Code(s): N39.0 - Urinary tract infection, site not specified Status: Acute Classification: Present on IRF Admission, Diagnosis Requiring Medical Follow Up (3) Complete rotator cuff tear or rupture of right shoulder, not specified as traumatic Code(s): M75.121 - Complete rotator cuff tear or rupture of right shoulder, not specified as traumatic Status: Acute Classification: Present on IRF Admission, Diagnosis Requiring Medical Follow Up (4) Status post fall Code(s): Z91.81 - History of falling Status: Acute (5) Anticoagulated on Coumadin Code(s): Z51.81 - Encounter for therapeutic drug level monitoring; Z79.01 - termite technician (current) use of anticoagulants Status: Chronic Classification: Present on IRF Admission, Diagnosis Requiring Medical Follow Up (6) Dementia Qualifiers: Dementia type: unspecified type Dementia behavioral disturbance: without behavioral disturbance Qualified Code(s): F03.90 - Unspecified dementia without behavioral disturbance Code(s): F03.90 - Unspecified dementia without behavioral disturbance Status: Chronic Classification: Present on IRF Admission, Diagnosis Requiring Medical Follow Up - Relevant Changes Relevant Changes: No Reviewed: I have reviewed the patient's information and concur with the finding and results of the pre-admission screen. Certification: I certify the patient for rehabilitation. - Medical Prognosis Medical Prognosis: Fair Vital Signs: Last Vital Signs Temp 98.3 F 05/08/17 07:41 Pulse 80 05/08/17 07:41 Resp 20 05/08/17 07:41 BP 108/65 05/08/17 07:41 Pulse Ox 93 05/08/17 07:41 - Anticipated Interventions Anticipated Interventions: The patient requires inpatient IRF care for PT, OT, and/or ST for residuals remaining from [] resulting in muscular weakness and strength deficits. ROM Deficit: Right Upper Extremity Strength Deficits: Right Upper Extremity, Left Upper Extremity, Left Lower Extremity - FIM Ambulation Distance: 184 Wheelchair Propulsion Distance: 132 Expression FIM Score Reason: note FIM scores from PT and OT notes. Reviewed. Toileting Adaptive Equipment: Grab Bars Urinary Catheter Present: No Number of Continent Voids: 2 Number of Incontinent Voids: 1 - Current Functional Status Failed Alternative Therapy: Arrived from Acute Care Patient Requires: The patient requires oversight by rehabilitation physician to manage their rehabilitation treatment plan and multidisciplinary approach to care that can only be provided in an IRF and requires a multidisciplinary approach to care, provided by professional PTs, OTs, STs, dieticians, RTs, rehabilitation nurses and is not available in lesser levels of care. Physical Therapy Minutes: 90 Occupational Therapy Minutes: 90 Therapy: The patient is to receive therapy at least [address] Treatment Plan: Evaluation Only ST Treatment Plan Duration: N/A ST Treatment Plan Frequency: N/A - Anticipated LOS/Outcomes Anticipated Functional Outcome: Improvement from status quo to readmit status is expected. Anticipated DC Destination: Home Health Service Home Safety Plan: The patient will be provided with the development of a Home Safety Plan for return to a home or home-like environment and and to ensure safety post discharge. - Plan to Avoid Complications Barriers to Attaining Goals: Weakness, Balance, Endurance, Pain Control Plan to Avoid Complications: The patient cannot receive this care in a lesser intensive setting such as Shelter or Outpatient Therapy due to the patient requiring supervision due to generalized weakness. he is at great risk for fall and injury. He does require inpatient supervision.
== END 2017-05-08 14:35 | disposition home health service (06) | DRG 945 ==
PROVIDERS: ADMIT Family Medicine; ATTEND Family Medicine

== ENCOUNTER 2018-06-17 17:23 | Observation (INO) ==
[2018-06-17] MEDS ORDERED: SALINE FLUSH 10ml SYRINGE IVF PRN (17:55)
--- NOTE | 2018-06-17 18:04 | Emergency Department Report ---
Weakness HPI - General Chief complaint: Weakness Stated complaint: pos UTI/sepsis Source: patient, family Mode of arrival: wheelchair Limitations: no limitations - History of Present Illness HPI Narrative: PT presents from the clinic after he had fallen 3 times in the last 48 hours. PT went to the clinic to be evaluated but had difficulty voiding for a UA and was sent to the ER. Pt and report pt fell this am and spent about 3 hours on the floor waiting for assistance to help get pt of floor. He then fell again in another room and waited for son to get home to help him get up. PT denies being dizzy or light headed prior to fall. He denies fever, cough, nausea, vomiting, or diarrhea, recent illness, SOA, or chest pain. Pt denies neck, hip, or back pain after fall. MD Complaint: generalized weakness, lack of energy Onset (ago): day(s) Associated symptoms: denies other symptoms - Related Data Home Medications Medication Instructions Recorded Confirmed Aspirin [Adult Low Dose Aspirin EC] 81 mg PO HS 04/25/17 06/17/18 Donepezil HCl [Aricept] 10 mg PO HS 04/25/17 06/17/18 Metoprolol Succinate 25 mg PO DAILY 04/25/17 06/17/18 lysine 500 mg tablet 500 mg PO DAILY tab 05/12/17 06/17/18 vit C 250 mg-E 200 unit-zinc 40 1 tab PO BID 11/16/17 06/17/18 mg-copper 1 [id number] capsule Acetaminophen SR [Tylenol 650 mg PO QID PRN 01/27/18 06/17/18 Arthritis 650 MG SR] Cyanocobalamin (Vitamin B-12) 1 tab PO DAILY 01/27/18 06/17/18 [Vitamin B-12] Phenytoin Cap [Dilantin 100 mg Cap] 500 mg PO HS 01/27/18 06/17/18 levothyroxine 25 mcg tablet 25 mcg PO DAILY 30 Days #30 tab 04/23/18 06/17/18 Colace (Docusate sodium) 100 mg 200 mg PO DAILY 04/26/18 06/17/18 capsule Flomax (tamsulosin) 0.4 mg capsule 0.4 mg PO DAILY 04/26/18 06/17/18 Plavix (clopidogrel) 75 mg tablet 75 mg PO DAILY 04/26/18 06/17/18 calcium carbonate 500 mg calcium 500 mg PO DAILY tab 04/26/18 06/17/18 (1,250 mg) tablet Zocor (simvastatin) 40 mg tablet 40 mg PO PM 05/24/18 06/17/18 Previous Rx's Medication Instructions Recorded CephALEXin [Keflex 500 mg] 500 mg PO TID #30 cap 04/17/18 Allergies Allergy/AdvReac Type Severity Reaction Status Date / Time acetaminophen [From Lortab] Allergy Verified 06/17/18 17:57 hydrocodone [From Lortab] Allergy Verified 06/17/18 17:57 Review of Systems All systems: reviewed and negative except as stated Constitutional: Reports: as per HPI Cardiovascular: Reports: as per HPI Respiratory: Reports: as per HPI Gastrointestinal: Reports: as per HPI Genitourinary: Reports: as per HPI Musculoskeletal: Reports: as per HPI Neurological: Reports: as per HPI PFS Patient Stated Medical History Cerebrovascular Accident Yes Dementia Yes 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 Syncope Yes Transient Ischemic Attacks ( Yes TIA) Cataracts Yes Dental Problems Yes Macular Degeneration Yes Angina Yes Coronary Artery Disease Yes Hypertension Yes Myocardial Infarction Yes Valvular Heart Disease Yes Sleep Apnea Yes Constipation Yes Ulcer Yes Hx Incontinence Yes Hx Urinary Tract Infection Yes Clotting Problems Yes Osteoarthritis Yes Sepsis Yes Clinic Medical History (Last Reviewed 04/23/18 @ 09:51 by Alisha Smith MD) Arthritis (Chronic Medical) Blind left eye (Chronic Medical) HTN (hypertension) (Chronic Medical) Hyperlipidemia (Chronic Medical) Memory problem (Chronic Medical) Seizure (Chronic Medical) Stroke (Chronic Medical) Surgical History: 1. Carpal tunnel x 2: 2007. 2. Cataract removal: 2012. 3. Heart stents 03/2018 Family History: Family History (Last Reviewed 05/24/18 @ 10:14 by DEBORAH Funes) Mother Glaucoma Father Stroke Heart disease Sister Diabetes - Social History Smoking status: Never smoker Substance use type: does not use Alcohol intake frequency: does not drink Housing: house Current occupational status: retired Current occupational exposures/hazards: No Does patient use chewing tobacco?: No Current residence: Apartment/Private Home Physical Exam - Limitations Limitations: no limitations - General General appearance: alert, in no apparent distress - Normal Exams: Head:: Normocephalic without trauma Eyes:: Pupils are PERRLA w/ EOMI Chest/Respirations:: Clear all banegas, with good airflow, and symmetry bilaterally Cardiovascular:: Regular rate and rhythm, without murmur or gallop, Pulses 2+ all extremities (trace pedal edema bilaterally), capillary refill, <2 seconds all extremities Abdomen:: Bowel sounds positive, soft, non-tender, non-distended Musculoskeletal:: No tenderness, or deformity noted, good range of motion, all extremities Integumentary:: No rashes Neurological:: Patient is alert, and oriented, cranial nerves, motor/sensory/ cerebellar, exams w/o gross deficits, to observation Psychiatric:: Patient exhibits, appropriate attention, emotion and affect Course Vital Signs Temperature 97.4 F 06/17/18 17:44 Pulse Rate 92 06/17/18 17:44 Respiratory Rate 18 06/17/18 17:44 Blood Pressure 136/65 06/17/18 17:44 Pulse Oximetry 98 06/17/18 17:44 Temperature 97.4 F 06/17/18 17:44 Pulse Rate 81 06/17/18 18:45 Respiratory Rate 20 06/17/18 18:45 Blood Pressure 148/68 H 06/17/18 18:45 Pulse Oximetry 97 06/17/18 18:45 Weakness - MDM Narrative Medical decision making narrative: Labs reviewed. NS and antibiotics given. and pt express concern over discharge to home at this point 2/2 weakness. Hospitalist notified and will admit observation at this time. Pt and family voice agreement with plan. - Differential Diagnosis Differential diagnosis: Likely: anemia, hypoglycemia, hypothyroidism, rhabdomyolysis, sepsis, dehydration - Lab Data Attestation: I reviewed the patient's lab results. Result diagrams: 06/17/18 18:39 06/17/18 18:39 Lab Results 06/17/18 06/17/18 06/17/18 Range/Units 17:42 18:39 18:39 WBC 11.7 H (4.5-11.0) T/MM3 RBC 4.14 L (4.50-5.90) M/MM3 Hgb 13.4 L (13.5-17.5) GM/DL Hct 40.4 L (41-53) % MCV 97.6 (80-100) UM3 MCH 32.4 (26-34) UUG MCHC 33.2 (31-37) GM/DL RDW Std Deviation 41.5 (36.9-50.2) FL Plt Count 244 (130-400) T/MM3 MPV 10.6 (9.4-12.4) UM3 Immature Gran % (Auto) 0.3 (0.0-0.5) % Neut % (Auto) 71.3 H (33-66) % Lymph % (Auto) 16.2 L (23-45) % Kern % (Auto) 12.0 H (0-9.0) % Eos % (Auto) 0.2 (0-4) % Baso % (Auto) 0.0 (0-2) % Neut # (Auto) 8.3 H (1.8-7.7) T/MM3 Lymph # (Auto) 1.9 (1-4.8) T/MM3 Kern # (Auto) 1.4 H (0-0.8) T/MM3 Eos # (Auto) 0.0 (0-0.5) T/MM3 Baso # (Auto) 0.0 (0-0.2) T/MM3 Abs Immat Gran (auto) 0.03 (0.00-0.03) T/MM3 Turbidity < 20 (0-20) Sodium 142 (136-146) MEQ/L Potassium 3.9 (3.6-5) MEQ/L Chloride 105 (98-107) MEQ/L Carbon Dioxide 27 (22-30) MEQ/L Anion Gap 10 (5-15) meq/L BUN 23.0 H (9-20) MG/DL Creatinine 1.1 (0.8-1.5) mg/dL Estimated Creat Clear 55 (>50) mL/min GFR Calculation 63 (>60) mL/min BUN/Creatinine Ratio 21 (6-26) RATIO Glucose 118 H (75-110) MG/DL Calculated Osmolality 278 (261-280) MOSM/KG Calcium 8.9 (8.4-10.2) MG/DL Total Bilirubin 0.80 (0.20-1.30) MG/DL Icterus Index < 2 (0-7) AST 34 (17-59) U/L ALT 13 (1-50) U/L Alkaline Phosphatase 108 (38-126) U/L Total Protein 7.2 (6.3-8.2) g/dL Albumin 4.1 (3.5-5.0) g/dL Globulin 3.1 (2.4-3.6) G/DL Albumin/Globulin Ratio 1.3 (1.1-2.2) RATIO TSH (0.47-4.68) mIU/L Specimen Hemolysis 28 H (0-25) Ur Collection Type Urine, void-cc/notcc Urine Color Viji (YELLOW) Urine Clarity Cloudy Urine pH 8.5 A (5.0-8.0) Ur Specific [place] <=1.005 L (1.015-1.025) Urine Protein 3+ A (NEGATIVE) Urine Glucose (UA) Negative (NEGATIVE) Urine Ketones Negative (NEGATIVE) Urine Occult Blood 2+ A (NEGATIVE) Urine Nitrate Negative (NEGATIVE) Urine Bilirubin Negative (NEGATIVE) Urine Urobilinogen 0.2 (NORMAL) EU/DL Ur Leukocyte Esterase 3+ (NEGATIVE) Urine RBC 10-20 H (0-3) /HPF Urine WBC 20-30 H (0-5) /HPF Ur Squamous Epith Cells 0-5 Amorphous Sediment Moderate Urine Bacteria 4+ H (NEGATIVE) Ur Culture Indicated? Cult reflexed &setup 06/17/18 Range/Units 18:39 WBC (4.5-11.0) T/MM3 RBC (4.50-5.90) M/MM3 Hgb (13.5-17.5) GM/DL Hct (41-53) % MCV (80-100) UM3 MCH (26-34) UUG MCHC (31-37) GM/DL RDW Std Deviation (36.9-50.2) FL Plt Count (130-400) T/MM3 MPV (9.4-12.4) UM3 Immature Gran % (Auto) (0.0-0.5) % Neut % (Auto) (33-66) % Lymph % (Auto) (23-45) % Kern % (Auto) (0-9.0) % Eos % (Auto) (0-4) % Baso % (Auto) (0-2) % Neut # (Auto) (1.8-7.7) T/MM3 Lymph # (Auto) (1-4.8) T/MM3 Kern # (Auto) (0-0.8) T/MM3 Eos # (Auto) (0-0.5) T/MM3 Baso # (Auto) (0-0.2) T/MM3 Abs Immat Gran (auto) (0.00-0.03) T/MM3 Turbidity (0-20) Sodium (136-146) MEQ/L Potassium (3.6-5) MEQ/L Chloride (98-107) MEQ/L Carbon Dioxide (22-30) MEQ/L Anion Gap (5-15) meq/L BUN (9-20) MG/DL Creatinine (0.8-1.5) mg/dL Estimated Creat Clear (>50) mL/min GFR Calculation (>60) mL/min BUN/Creatinine Ratio (6-26) RATIO Glucose (75-110) MG/DL Calculated Osmolality (261-280) MOSM/KG Calcium (8.4-10.2) MG/DL Total Bilirubin (0.20-1.30) MG/DL Icterus Index (0-7) AST (17-59) U/L ALT (1-50) U/L Alkaline Phosphatase (38-126) U/L Total Protein (6.3-8.2) g/dL Albumin (3.5-5.0) g/dL Globulin (2.4-3.6) G/DL Albumin/Globulin Ratio (1.1-2.2) RATIO TSH 2.82 (0.47-4.68) mIU/L Specimen Hemolysis (0-25) Ur Collection Type Urine Color (YELLOW) Urine Clarity Urine pH (5.0-8.0) Ur Specific [place] (1.015-1.025) Urine Protein (NEGATIVE) Urine Glucose (UA) (NEGATIVE) Urine Ketones (NEGATIVE) Urine Occult Blood (NEGATIVE) Urine Nitrate (NEGATIVE) Urine Bilirubin (NEGATIVE) Urine Urobilinogen (NORMAL) EU/DL Ur Leukocyte Esterase (NEGATIVE) Urine RBC (0-3) /HPF Urine WBC (0-5) /HPF Ur Squamous Epith Cells Amorphous Sediment Urine Bacteria (NEGATIVE) Ur Culture Indicated? Disposition Clinical Impression: Weakness UTI (urinary tract infection) Qualifiers: Urinary tract infection type: acute cystitis Hematuria presence: with hematuria Qualified Code(s): N30.01 - Acute cystitis with hematuria Disposition: 02 To [facility] [place] Condition: Improved Prescriptions: No Action Aspirin [Adult Low Dose Aspirin EC] 81 mg PO HS Metoprolol Succinate 25 mg PO DAILY Donepezil HCl [Aricept] 10 mg PO HS Acetaminophen SR [Tylenol Arthritis 650 MG SR] 650 mg PO QID PRN PRN Reason: Arthritis Cyanocobalamin (Vitamin B-12) [Vitamin B-12] 1 tab PO DAILY Phenytoin Cap [Dilantin 100 mg Cap] 500 mg PO HS CephALEXin [Keflex 500 mg] 500 mg PO TID #30 cap lysine 500 mg tablet 500 mg PO DAILY tab Plavix (clopidogrel) 75 mg tablet 75 mg PO DAILY Colace (Docusate sodium) 100 mg capsule 200 mg PO DAILY Flomax (tamsulosin) 0.4 mg capsule 0.4 mg PO DAILY Zocor (simvastatin) 40 mg tablet 40 mg PO PM vit C 250 mg-E 200 unit-zinc 40 mg-copper 1 [id number] capsule 1 tab PO BID levothyroxine 25 mcg tablet 25 mcg PO DAILY 30 Days #30 tab calcium carbonate 500 mg calcium (1,250 mg) tablet 500 mg PO DAILY tab Referrals: Trinidad Solitario DO [Primary Care Provider] - Time of Disposition: 19:46 - Seen By: tiny
--- OUTSIDE RECORDS SUMMARY | 2018-06-17 18:13 | External Medical Summary ---
:1930 Author Organization [facility] Address [address] [place] [address] Care Team Providers Name Role Phone Carolin Sales Unavailable Unavailable PROBLEMS Type Condition ICD9-CM MHA71-AG Onset Condition SNOMED Code Code Code Dates Status Problem Atherosclerosis of I25.10 Active 2946952489288 douglas coronary artery of douglas heart without angina pectoris Problem S/P angioplasty with Z95.9 Active 510845712 stent Problem Hypercholesteremia E78.00 Active 91017324 Problem CVA (cerebral vascular I63.9 Active [id number] accident) ALLERGIES Substance Reaction Event Type Date Status Lortab stomach upset Drug Allergy May, Active ENCOUNTERS Encounter Location Date Diagnosis [address] Sep, [facility] [address] [place] [address] May, Atherosclerosis of douglas [facility] [address] coronary artery of douglas [place], [place] heart without angina pectoris [address] I25.10 ; S/P angioplasty with stent Z95.9 ; Hypercholesteremia E78.00 and CVA (cerebral vascular accident) I63.[address] Apr, [address] [address] Apr, Atherosclerosis of douglas [facility] [address] coronary artery of douglas [place], [place] heart without angina pectoris [address] I25.10 ; S/P angioplasty with stent Z95.9 ; Hypercholesteremia E78.00 and CVA (cerebral vascular accident) I63.[address] Apr, CAD (coronary artery disease) [facility] [address] I25.10 ; Chest pain R07.9 ; [place], [place] Hypercholesteremia E78.00 ; [address] CVA (cerebral vascular accident) I63.9 and Chronic anticoagulation Z79.[address] March, Cardiology-[address] [address] [place] [address] March, [address] [address] [place] [address] March, [place] [address] [place] [address] March, [address] [address] March, CAD (coronary artery disease) [facility]-[address] I25.10 ; Chest pain R07.9 ; [place], [place] Hypercholesteremia E78.00 ; [address] CVA (cerebral vascular accident) I63.9 and Chronic anticoagulation Z79.[address] March, CAD (coronary artery disease) Cardiology-[address]25[address]10 [place] [address] [place] [address] Nov, CAD (coronary artery disease) [address] I25.10 [address] [place] [address] Nov, CAD (coronary artery disease) [address] I25.10 [address] [place] [address] Sep, CAD (coronary artery disease) [facility] I25.10 ; Chest pain R07.9 ; [address] Hypercholesteremia E78.00 ; CVA (cerebral vascular accident) I63.9 and Chronic anticoagulation Z79.01 [place] [address] Jul, CAD (coronary artery disease) [address] I25.10 ; Chest pain R07.9 ; [address] Hypercholesteremia E78.00 ; CVA (cerebral vascular accident) I63.9 and Chronic anticoagulation Z79.01 [place] [address] Apr, Cardiology-[address] [address] [place] [address] Dec, CAD (coronary artery disease) [address] I25.10 ; Chest pain R07.9 ; [address] Hypercholesteremia E78.00 ; CVA (cerebral vascular accident) I63.9 and Chronic anticoagulation Z79.01 [place] [address] Oct, CAD (coronary artery disease) [facility] [address], [place] I25.10 ; Chest pain R07.9 ; [address] Hypercholesteremia E78.00 ; CVA (cerebral vascular accident) I63.9 and Chronic anticoagulation Z79.01 [place] [address] Oct, [facility] [address] [place] [address] [place] [address] Oct, [facility] [address] [place] [address] [place] [address] 16 Oct, 2016 [facility] [address] [place] [address] [place] [address] 15 Oct, 2016 CVA (cerebral vascular [facility], [place] accident) I63.9 [address] [place] [address] 15 Oct, 2016 Chest pain R07.9 [facility] [address] [place] [address] [place] [address] Oct, Chest pain R07.9 ; [facility], [place] Hypercholesteremia E78.00 ; [address] CVA (cerebral vascular accident) I63.9 and Chronic anticoagulation Z79.01 [place] [address] Jun, [address] [place] [address] [place] [address] Jun, [address] [place] [address] IMMUNIZATIONS No Known Immunizations SOCIAL HISTORY Never Assessed REASON FOR VISIT GAT F/U PER DR DURBIN PLAN OF CARE Activity Details Follow Up in September as scheduled Reason: Pending Test [facility] VITAL SIGNS Height 69 in 2018-05-21 Weight 211.4 lbs 2018-05-21 BMI 31.21 kg/m2 2018-05-21 Oximetry 96 % 2018-05-21 Heart Rate 76 /min 2018-05-21 Blood pressure systolic 120 mm Hg 2018-05-21 Blood pressure diastolic 62 mm Hg 2018-05-21 MEDICATIONS Medication Instructions Dosage Frequency Start End Duration Status Date Date Donepezil HCl 10 Orally Once a 1 tablet at 24h Active MG day bedtime Stool Softener 2 tab 24h Active Plavix 75 MG Orally Once a 1 tablet 24h Active day Metoprolol Orally Once a 1 tablet 24h Active Succinate ER 25 day MG Calcium + D3 Orally qd 24h Active 600-200 MG-UNIT PreserVision Orally bid 1 tab 12h Active AREDS 2 - Tylenol Arthritis Orally bid 2 tablets 12h Active Pain 650 MG Phenytoin Sodium Orally qhs 5 caps Active Extended 100 MG Simvastatin 40 MG Orally Once a 1 tablet in 24h Active day the evening Tamsulosin HCl Orally Once a 1 capsule 24h Active 0.4 MG day Levothyroxine Orally Once a 1 tablet on 24h Active Sodium 25 MCG day an empty stomach in the morning Aspirin 81 MG Orally Once a 1 tablet 24h Active day L-Lysine 500 MG Orally qd 24h Active Vitamin B12 Active RESULTS Name Result Date Reference Range [facility] PROCEDURES Procedure Date Ordered Result Body Site ELECTROCARDIOGRAM, COMPLETE May 21, 2018 INSTRUCTIONS MEDICATIONS ADMINISTERED No Known Medications MEDICAL (GENERAL) HISTORY Type Description Date Medical History Coronary artery disease (CAD) Medical History Chest pain Medical History Absence seizure disorder Medical History Chronic musculoskeletal pain Medical History Dementia Medical History Adema Medical History Generalized non-convulsive epilepsy Medical History Hearing loss Medical History HLD Medical History Hx of TIA Medical History Hx of spinal meningitis Medical History Hypercholesterolemia Medical History Ulcers Medical History Heart cath, 2016, Dr. Elva Manzanares Surgical History Cataract removal Surgical History carpal tunnel Surgical History Ulcers Surgical History Meningitis procedure Surgical History 3 stents placements
[2018-06-17] MEDS ORDERED: CEFTRIAXONE 1 G INJECTION IM SCH (18:30)
[2018-06-17] MEDS ORDERED: CEFTRIAXONE (ER USE ONLY) 1 GM in NS 100 ML IV ONE (18:50)
[2018-06-17] MEDS ORDERED: NS 1,000 ML IV ONE (19:06)
[2018-06-17] MEDS ORDERED: ONDANSETRON 4 MG/2 ML INJECTION IVP PRN (20:25)
[2018-06-17] MEDS ORDERED: HYDROCODONE/APAP 5mg/325mg TABLET PO PRN (20:25)
[2018-06-17] MEDS ORDERED: ACETAMINOPHEN 325 MG TABLET PO PRN (20:25)
--- NOTE | 2018-06-17 21:01 | History & Physical Report ---
History of Present Illness Date: 06/18/18 Chief complaint: fell HPI: This is a 87 y/o male with mod dementia who lives at home with his who is his primary child care aide. The patient had increasing weakness over the past 3 days. Today the patient fell and it took the 3 hours to get the patient up. They were able to see her pcp who was unable to gain a sample of urine 2/2 to BPH. The patient was referred to the ED where he was able to spontaneously void and urine was definately infected. The patient had a low grade fever. The patient has significant dementia and a such all information is obtained from the and information by the ED provider. No cough. No congestion, NO short of breath, no abdomen pain, no nausea/ vomiting. The says that usually when he gets weak like this he has a UTI. The patient will be admitted for treatment of his UTI. Review of Systems Review of systems: limited 2/2 to dementia. Otherwise as noted in HPI. Past Medical History Medical History: Medical History (Last Reviewed 04/23/18 @ 09:51 by Alisha Smith MD) Arthritis Blind left eye HTN (hypertension) Hyperlipidemia Memory problem Seizure Stroke Surgical History: 1. Carpal tunnel x 2: 2007. 2. Cataract removal: 2012. 3. Heart stents 03/2018 Family History: Family History (Last Reviewed 05/24/18 @ 10:14 by Cuca Rogers [facility]) Mother Glaucoma Father Stroke Heart disease Sister Diabetes Family History: As Above - Social History Smoking status: Never smoker Substance use type: does not use Alcohol intake frequency: does not drink Housing: house Household members: spouse Current occupational status: retired Previous occupational history: worked [employer] Current residence: Apartment/Private Home Medications Home Medications Medication Instructions Recorded Confirmed Type Aspirin [Adult Low Dose Aspirin EC] 81 mg PO HS 04/25/17 06/17/18 History Donepezil HCl [Aricept] 10 mg PO HS 04/25/17 06/17/18 History Metoprolol Succinate 25 mg PO DAILY 04/25/17 06/17/18 History lysine 500 mg tablet 500 mg PO DAILY tab 05/12/17 06/17/18 History vit C 250 mg-E 200 unit-zinc 40 1 tab PO BID 11/16/17 06/17/18 History mg-copper 1 [id number] capsule Acetaminophen SR [Tylenol 650 mg PO QID PRN 01/27/18 06/17/18 History Arthritis 650 MG SR] Cyanocobalamin (Vitamin B-12) 1 tab PO DAILY 01/27/18 06/17/18 History [Vitamin B-12] Phenytoin Cap [Dilantin 100 mg Cap] 500 mg PO HS 01/27/18 06/17/18 History CephALEXin [Keflex 500 mg] 500 mg PO TID #30 cap 04/17/18 06/17/18 Rx levothyroxine 25 mcg tablet 25 mcg PO DAILY 30 Days #30 tab 04/23/18 06/17/18 History Colace (Docusate sodium) 100 mg 200 mg PO DAILY 04/26/18 06/17/18 History capsule Flomax (tamsulosin) 0.4 mg capsule 0.4 mg PO DAILY 04/26/18 06/17/18 History Plavix (clopidogrel) 75 mg tablet 75 mg PO DAILY 04/26/18 06/17/18 History calcium carbonate 500 mg calcium 500 mg PO DAILY tab 04/26/18 06/17/18 History (1,250 mg) tablet Zocor (simvastatin) 40 mg tablet 40 mg PO PM 05/24/18 06/17/18 History Allergies Allergy/AdvReac Type Severity Reaction Status Date / Time hydrocodone [From Lortab] Allergy Verified 06/17/18 17:57 Exam Vital Signs: Temperature 96.7 F L 06/17/18 20:25 Pulse Rate 85 06/17/18 20:25 Respiratory Rate 18 06/17/18 20:25 Blood Pressure 141/64 H 06/17/18 20:25 Pulse Oximetry 97 06/17/18 20:25 Telemetry Rhythm: Sinus Rhythm Height/Weight/BMI: Height 1.75 m Weight 91.5 kg Body Mass Index 29.7 - Constitutional Present: mild distress - Routine HEENT Exam Head: Present: normocephalic, atraumatic Eye: Present: EOMI ENT: Present: mucous membranes dry - Routine Neck Exam Present: supple, full ROM - Routine Respiratory Exam Present: CTA bilaterally - Routine Cardiovascular Exam Present: RRR Comments: 2/6 Pancho - Routine Abdominal Exam Present: soft, normoactive bowel sounds, non distended, non tender - Routine Extremities Exam Present: edema, non tender, full ROM - Routine Back/Spine/Pelvis Exam Back/Spine: Present: full ROM - Routine Skin Exam Present: intact - Routine Neurological Exam Present: alert. Absent: oriented X3 - Routine Psychiatric Exam Present: normal affect, cooperative. Absent: normal thought process Results - Labs CBC & Chem 7: 06/18/18 03:10 06/18/18 03:10 Labs: reviewed and will be discussed below Microbiology Results: Microbiology 06/17/18 17:42 Urine, Voided (Cc/notcc) Urine Culture - Preliminary Culture Initiated - Results Pending Assessment and Plan (1) Weakness Current visit: Yes Status: Acute (2) Urinary tract infection Current visit: Yes Status: Acute (3) Status post fall Current visit: No Status: Acute (4) CAD (coronary artery disease) Current visit: No Status: Chronic (5) Dementia Current visit: No Status: Chronic (6) Seizure disorder Current visit: No Status: Chronic (7) Peripheral edema Current visit: No Status: Acute Assessment and Plan: 1. UTI acute POA: rocephin, adjust for culture results. Does not meet SIRS currently 2. weakness/disability acute on chronic POA: secondary to acute illness. fluids gentle, rocephin, pt and ot cx, would like to get back home with . will see how he responds to therapy and medial tx. 3. dehydration acute POA: fluids and repeat clincal assessment in the am 4. dementia type unspecified chronic POA: namenda and aricept. always worry about behavior when away from home and familiar environment. Fall risk. to be aware of. 5. BPH chronic POA: flomax, currently able to spontaneously void 6. HTN chronic POA: continue b aaron. 7. CAD chronic POA: continue b aaron, aspirin, statin, plavix 8. history of seizure disorder chronic not POA: on Dilantin 500 hs. no recent drug level. check level tonight. always possible contributing to weakness 9. DVT ppx; SCD, lovenox DVT Prophylaxis: SCD's, Lovenox Resuscitation Status: Full Code - Time spent with patient Time with patient PN: 35 minutes - Physician Narrative Physician: Annette Funes MD Narrative: Date: 06/17/18 Time: 2057 Dr. Cunningham's note reviewed. Mr. Zepeda interviewed and examined at bedside in the presence of his , Mrs. Garcia. CC: Weakness, fall, urinary retention HPI: A very pleasant 87-year-old male patient noted to have a fall at home on the morning of 06/17/2018 at approximately 8:30 AM. Patient's was away from home at the time, reported that she helped him get up around noon. Following which, patient was able to ambulate with minimal assistance as per previous baseline. Patient had another fall later in the day following which the patient was brought to PCP, Dr. Solitario office at approximately 1540 on 2017. Patient could not provide urine sample to check for UTI, catheterization was attempted without success and thereafter patient was directed to present to emergency room. After arrival at the ER, patient had spontaneous void, urinalysis suspicious for UTI and with these findings, telemetry hospitalist service was consulted and patient admitted to medical floor. At the time of evaluation at bedside, patient having breakfast, patient's present at bedside. As per Mrs. Garcia, patient has had a strong odor to his urine for the past 2 days and patient also noted to have some weakness while standing and moving around for the past 23 days. No reported subjective fever, no chills, no increased sweating. Patient did have a temperature of 100.4F at PCP office yesterday. No reported chest pain, no palpitations, no shortness of breath. PH: Coronary artery disease, multiple TIAs. Hyperlipidemia. Hypothyroidism. Seizure disorder. SH: Cataract extraction surgery to right eye. Carpal tunnel release procedure bilateral upper extremities. 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 Patient lives at home with his , who is also his caregiver. FH: Patient's father had a history of coronary artery disease. Patient's mother had a history of skin cancer at the age of 96. Patient's sister has a history of diabetes mellitus. ROS: 10 point review negative except - positive weakness, positive fatigue, positive fall, positive urinary retention, positive foul-smelling urine. EXAM: General: Alert, awake, oriented x 3. Not in acute distress. Head: Right pupil round, reactive to light. Status post left-sided enucleation. Extraocular movements intact. Neck: No elevation in JVP. No pharyngeal erythema noted. Chest: The patient does not use accessory muscles for breathing. Lungs: Breath sounds audible on auscultation bilateral lung banegas. No wheezing , no rhonchi, no crepitations, no crackles. No pleural rub. CVS: S1, S2 heard on auscultation. Normal rate and rhythm. No murmur, no S3/S4 gallops. Abdomen: Soft, nontender, no distention. Bowel sounds appreciated on auscultation. : No flank tenderness, no suprapubic distention or tenderness. Skin: No rashes, no induration, no erythema. Capillary refill less than 4 seconds. Extremities: No evidence of pedal edema bilateral lower extremities. No calf tenderness bilaterally. Palpable dorsalis pedis and posterior tibial pulses bilateral lower extremities. DATA: Selected Entries 06/18/18 08:07 Pulse Rate [Orthostatic Lying Right Radial] 102 H Pulse Rate [Orthostatic Sitting Left Radial] 98 Pulse Rate [Orthostatic Standing Left Radial] 106 H Blood Pressure [Orthostatic Lying Left Radial Artery] 141/91 H Blood Pressure [Orthostatic Sitting Left Radial Artery] 123/55 Blood Pressure [Orthostatic Standing] 104/43 Laboratory Tests 06/17/18 06/17/18 06/17/18 17:42 18:32 18:39 WBC 11.7 H RBC 4.14 L Hgb 13.4 L Hct 40.4 L MCV 97.6 MCH 32.4 MCHC 33.2 RDW Std Deviation 41.5 Plt Count 244 MPV 10.6 Immature Gran % (Auto) 0.3 Neut % (Auto) 71.3 H Lymph % (Auto) 16.2 L [place] % (Auto) 12.0 H Eos % (Auto) 0.2 Baso % (Auto) 0.0 Neutrophils % (Manual) Lymphocytes % (Manual) Monocytes % (Manual) Eosinophils % (Manual) Sodium Potassium Chloride Carbon Dioxide Anion Gap BUN Creatinine Estimated Creat Clear GFR Calculation BUN/Creatinine Ratio Glucose Ur Collection Type Urine, void-cc/notcc Urine Color [place] Urine Clarity Cloudy Urine pH 8.5 A Ur Specific [place] <=1.005 L Urine Protein 3+ A Urine Glucose (UA) Negative Urine Ketones Negative Urine Occult Blood 2+ A Urine Nitrate Negative Urine Bilirubin Negative Urine Urobilinogen 0.2 Ur Leukocyte Esterase 3+ Urine RBC 10-20 H Urine WBC 20-30 H Ur Squamous Epith Cells 0-5 Amorphous Sediment Moderate Urine Bacteria 4+ H Ur Culture Indicated? Cult reflexed &setup Phenytoin 20.2 H 06/18/18 06/18/18 03:10 03:10 WBC 9.3 RBC 3.85 L Hgb 12.5 L Hct 38.2 L MCV 99.2 MCH 32.5 MCHC 32.7 RDW Std Deviation 42.9 Plt Count 190 MPV 10.9 Immature Gran % (Auto) Neut % (Auto) Lymph % (Auto) G[place]rie % (Auto) Eos % (Auto) Baso % (Auto) Neutrophils % (Manual) 71.0 H Lymphocytes % (Manual) 21.0 L Monocytes % (Manual) 7.0 Eosinophils % (Manual) 1.0 Sodium 143 Potassium 3.9 Chloride 109 H Carbon Dioxide 22 Anion Gap 12 BUN 20.0 Creatinine 0.9 D Estimated Creat Clear 58 GFR Calculation 80 BUN/Creatinine Ratio 22 Glucose 102 Ur Collection Type Urine Color Urine Clarity Urine pH Ur Specific [place] Urine Protein Urine Glucose (UA) Urine Ketones Urine Occult Blood Urine Nitrate Urine Bilirubin Urine Urobilinogen Ur Leukocyte Esterase Urine RBC Urine WBC Ur Squamous Epith Cells Amorphous Sediment Urine Bacteria Ur Culture Indicated? Phenytoin Assessment: Weakness secondary to UTI. Dehydration. Urinary retention. BPH. Coronary artery disease. TIA, without any residual deficit. Hyperlipidemia. Hypothyroidism. Seizure disorder. Plan: Patient admitted to medical floor for observation. Will continue IV Rocephin 1 g daily. Positive orthostatic vital signs as described above. Patient has received 1 L IV fluid normal saline bolus. Currently on IV fluids normal saline at 100 mL per hour. We will slightly decrease the rate of IV fluids normal saline down to 75 mL per hour. Urinalysis suspicious for UTI, urine culture results awaited. Phenytoin level slightly elevated at 20.2. We will continue home medication phenytoin 500 MG by mouth at bedtime. Continue home medication Aricept 10 mg by mouth at bedtime, aspirin 81 mg by mouth daily, Plavix 75 mg by mouth daily, Synthroid 25 mcg by mouth daily, Toprol-XL 25 mg by mouth daily, simvastatin 40 mg by mouth at bedtime. CBC, BMP ordered for tomorrow. Hospital Course Summary Disclaimer: The visit summary below is not to be considered part of the above Progress Note.
[2018-06-17] MEDS: NS 1,000 ML IV SCH (21:30)
[2018-06-17] MEDS ORDERED: FALL RISK - PHARMACY CONSULT MC ONE (22:30)
[2018-06-17] MEDS: ENOXAPARIN 40 MG/0.4 ML INJECTION SQ SCH (23:35)
[2018-06-17] MEDS: PHENYTOIN 100 MG CAPSULE PO SCH (23:36)
[2018-06-17] MEDS: ASPIRIN *EC* 81 MG TABLET PO SCH (23:37)
[2018-06-17] MEDS: DONEPEZIL 10 MG TABLET PO SCH (23:37)
[2018-06-17] MEDS: SIMVASTATIN 40 MG TABLET PO SCH (23:37)
[2018-06-18] MEDS: NS 1,000 ML IV SCH ×2 (08:21→21:53)
[2018-06-18] MEDS: LEVOTHYROXINE 25 MCG TABLET PO SCH (10:03)
[2018-06-18] MEDS: ENOXAPARIN 40 MG/0.4 ML INJECTION SQ SCH (10:03)
[2018-06-18] MEDS: CLOPIDOGREL 75 MG TABLET PO SCH (10:03)
[2018-06-18] MEDS: DOCUSATE SODIUM 100 MG CAPSULE PO SCH (10:03)
[2018-06-18] MEDS: TAMSULOSIN 0.4 MG CAPSULE PO SCH (10:08)
[2018-06-18 13:28] VITALS: BMI 29.9
[2018-06-18] MEDS ORDERED: CEFTRIAXONE 1 G in NS 100 ML IV SCH (18:00)
[2018-06-18] MEDS: ASPIRIN *EC* 81 MG TABLET PO SCH (21:52)
[2018-06-18] MEDS: SIMVASTATIN 40 MG TABLET PO SCH (21:52)
[2018-06-18] MEDS: DONEPEZIL 10 MG TABLET PO SCH (21:52)
[2018-06-18] MEDS: PHENYTOIN 100 MG CAPSULE PO SCH (21:53)
[2018-06-19] MEDS: LEVOTHYROXINE 25 MCG TABLET PO SCH (06:41)
[2018-06-19] MEDS: CLOPIDOGREL 75 MG TABLET PO SCH (09:29)
[2018-06-19] MEDS: DOCUSATE SODIUM 100 MG CAPSULE PO SCH (09:29)
[2018-06-19] MEDS: ENOXAPARIN 40 MG/0.4 ML INJECTION SQ SCH (09:29)
[2018-06-19] MEDS: TAMSULOSIN 0.4 MG CAPSULE PO SCH (09:29)
[2018-06-19] MEDS: NS 1,000 ML IV SCH (11:19)
--- NOTE | 2018-06-19 14:53 | Discharge Summary ---
Discharge Information Date of admission: 06/17/18 19:54 Anticipated date of discharge: 06/19/18 Attending Physician: Annette Funes MD Primary care physician: Trinidad Solitario, DO - Discharge Diagnosis (1) Urinary tract infection Status: Acute (2) Status post fall Status: Acute (3) Weakness Status: Resolved (4) CAD (coronary artery disease) Status: Chronic (5) Dementia Status: Chronic (6) Seizure disorder Status: Chronic (7) Peripheral edema Status: Chronic Dehydration, resolved Urinary retention with history of BPH Coronary artery disease status post coronary artery stent placement in March 2018 History of TIA without any residual deficit Hypothyroidism Seizure disorder Hyperlipidemia - Laboratory Labs: 06/18/18 03:10 06/18/18 03:10 Laboratory Tests 06/17/18 06/17/18 06/17/18 17:42 18:32 18:39 WBC 11.7 H RBC 4.14 L Hgb 13.4 L Hct 40.4 L MCV 97.6 MCH 32.4 MCHC 33.2 RDW Std Deviation 41.5 Plt Count 244 Neut % (Auto) 71.3 H Lymph % (Auto) 16.2 L [place] % (Auto) 12.0 H Eos % (Auto) 0.2 Baso % (Auto) 0.0 Ur Collection Type Urine, void-cc/notcc Urine Color Viji Urine Clarity Cloudy Urine pH 8.5 A Ur Specific [place] <=1.005 L Urine Protein 3+ A Urine Glucose (UA) Negative Urine Ketones Negative Urine Occult Blood 2+ A Urine Nitrate Negative Urine Bilirubin Negative Urine Urobilinogen 0.2 Ur Leukocyte Esterase 3+ Urine RBC 10-20 H Urine WBC 20-30 H Ur Squamous Epith Cells 0-5 Amorphous Sediment Moderate Urine Bacteria 4+ H Ur Culture Indicated? Cult reflexed &setup Phenytoin 20.2 H - Microbiology Microbiology 06/17/18 17:42 Urine, Voided (Cc/notcc) Urine Culture - Final Escherichia coli (resistant to ciprofloxacin, Levaquin) History of Present Illness HPI: A very pleasant 87-year-old male patient noted to have a fall at home on the morning of 06/17/2018 at approximately 8:30 AM. Patient's was away from home at the time, reported that she helped him get up around noon. Following which, patient was able to ambulate with minimal assistance as per previous baseline. Patient had another fall later in the day following which the patient was brought to PCP, Dr. Solitario office at approximately 1540 on 2017. Patient could not provide urine sample to check for UTI, catheterization was attempted without success and thereafter patient was directed to present to emergency room. After arrival at the ER, patient had spontaneous void, urinalysis suspicious for UTI and with these findings, telemetry hospitalist service was consulted and patient admitted to medical floor. At the time of evaluation at bedside, patient having breakfast, patient's present at bedside. As per Mrs. Garcia, patient has had a strong odor to his urine for the past 2 days and patient also noted to have some weakness while standing and moving around for the past 23 days. No reported subjective fever, no chills, no increased sweating. Patient did have a temperature of 100.4F at PCP office yesterday. No reported chest pain, no palpitations, no shortness of breath. Objective Vital signs: Temperature 97.6 F 06/19/18 06:04 Pulse Rate 83 06/19/18 08:00 Respiratory Rate 17 06/19/18 06:04 Blood Pressure 113/56 06/19/18 06:04 Pulse Oximetry 92 06/19/18 06:04 Height/Weight/BMI: Height 1.75 m Weight 94.5 kg Body Mass Index 29.9 - Additional findings Additional findings: General: Alert, awake, oriented x 3. Not in acute distress. Head: Right pupil round, reactive to light. Status post left-sided enucleation. Extraocular movements intact. Neck: No elevation in JVP. No pharyngeal erythema noted. Chest: The patient does not use accessory muscles for breathing. Lungs: Breath sounds audible on auscultation bilateral lung banegas. No wheezing , no rhonchi, no crepitations, no crackles. No pleural rub. CVS: S1, S2 heard on auscultation. Normal rate and rhythm. No murmur, no S3/S4 gallops. Abdomen: Soft, nontender, no distention. Bowel sounds appreciated on auscultation. : No flank tenderness, no suprapubic distention or tenderness. Skin: No rashes, no induration, no erythema. Capillary refill less than 4 seconds. Extremities: No evidence of pedal edema bilateral lower extremities. No calf tenderness bilaterally. Palpable dorsalis pedis and posterior tibial pulses bilateral lower extremities. Hospital Course This is a general summary of the patient's hospital course. For more details refer to the complete medical record. Hospital course: 06/17/2018 1. UTI acute POA: rocephin, adjust for culture results. Does not meet SIRS currently 2. weakness/disability acute on chronic POA: secondary to acute illness. fluids gentle, rocephin, pt and ot cx, would like to get back home with . will see how he responds to therapy and medial tx. 3. dehydration acute POA: fluids and repeat clincal assessment in the am 4. dementia type unspecified chronic POA: namenda and aricept. always worry about behavior when away from home and familiar environment. Fall risk. to be aware of. 5. BPH chronic POA: flomax, currently able to spontaneously void 6. HTN chronic POA: continue b aaron. 7. CAD chronic POA: continue b aaron, aspirin, statin, plavix 8. history of seizure disorder chronic not POA: on Dilantin 500 hs. no recent drug level. check level tonight. always possible contributing to weakness 9. DVT ppx; SCD, lovenox 06/18/2018 Patient admitted to medical floor for observation. Will continue IV Rocephin 1 g daily. Positive orthostatic vital signs as described above. Patient has received 1 L IV fluid normal saline bolus. Currently on IV fluids normal saline at 100 mL per hour. We will slightly decrease the rate of IV fluids normal saline down to 75 mL per hour. Urinalysis suspicious for UTI, urine culture results awaited. Phenytoin level slightly elevated at 20.2. We will continue home medication phenytoin 500 MG by mouth at bedtime. Continue home medication Aricept 10 mg by mouth at bedtime, aspirin 81 mg by mouth daily, Plavix 75 mg by mouth daily, Synthroid 25 mcg by mouth daily, Toprol-XL 25 mg by mouth daily, simvastatin 40 mg by mouth at bedtime. CBC, BMP ordered for tomorrow. 06/19/2018-discharge Patient resting in bedside chair at the time of interview. Patient's present at bedside. No reported weakness, no abdominal pain, no flank pain, no nausea, no vomiting. Patient afebrile overnight. Patient has good appetite and tolerating diet. Urine culture growing Escherichia coli sensitive to all antibiotics checked except for ciprofloxacin, levofloxacin. Patient will be discharged on 8 days of oral Augmentin. Patient's inquired about urology follow-up, patient's clinical statistics manager has recommended not to stop Plavix until at least one year (which will be March 2019). Advised patient to discuss with PCP about making appointment with urologist. Patient advised timed voiding, encouraged to attempt voiding at least once every 3 hours during daytime and as needed during nighttime. Resuscitation Status: Full Code Discharge Plan - Discharge Disposition Discharge Date: 06/19/18 Disposition: Discharged Home, Self-Care *Condition: Improved Reason For Visit (Visit label in EMR): UTI Weakness - Discharge Medications *Discharge Medications: New Amoxicillin/Potassium Clav [Augmentin 875-125 Tablet] 1 tab PO BID #16 tab Continue Aspirin [Adult Low Dose Aspirin EC] 81 mg PO HS Metoprolol Succinate 25 mg PO DAILY Donepezil HCl [Aricept] 10 mg PO HS Acetaminophen SR [Tylenol Arthritis 650 MG SR] 650 mg PO QID PRN PRN Reason: Arthritis Cyanocobalamin (Vitamin B-12) [Vitamin B-12] 1 tab PO DAILY Phenytoin Cap [Dilantin 100 mg Cap] 500 mg PO HS lysine 500 mg tablet 500 mg PO DAILY tab Plavix (clopidogrel) 75 mg tablet 75 mg PO DAILY Colace (Docusate sodium) 100 mg capsule 200 mg PO DAILY Flomax (tamsulosin) 0.4 mg capsule 0.4 mg PO DAILY Zocor (simvastatin) 40 mg tablet 40 mg PO PM vit C 250 mg-E 200 unit-zinc 40 mg-copper 1 [id number] capsule 1 tab PO BID levothyroxine 25 mcg tablet 25 mcg PO DAILY 30 Days #30 tab calcium carbonate 500 mg calcium (1,250 mg) tablet 500 mg PO DAILY tab Discontinued CephALEXin [Keflex 500 mg] 500 mg PO TID #30 cap - Discharge Packet/Instructions *Diet: 2 g salt, low cholesterol diet. *Activity: As tolerated. *Pain Management/Treatment: Tylenol 500 mg by mouth every 6 hours as needed. *Wound Care: Not applicable *Expected Signs/Symptoms: Continued symptomatic improvement *Notify Physician if: Fever, chills, increased shortness of breath, intractable nausea, vomiting, abdominal pain, chest pain, palpitations, dizziness, blurred vision, diarrhea, fatigue, weakness, flank pain, dysuria, black tarry stools, bright red blood per rectum or any other concerning findings. *During Business Hours Contact: Your PCP, Dr. Solitario *After Business Hours Contact: Call [facility] at [phone] and ask that the on-call physician be paged *Pending Lab/Results: No Pending Lab - Referrals/Follow Up *Referrals/Follow Up: Trinidad Solitario, [Primary Care Provider] - - Patient Handouts - Dismissal Complete Discharge Instructions are:: Complete Physician Narrative - Narrative Attestation Narrative: Date: 06/19/18 Time: 0750
[2018-06-19 15:35] VITALS: BP 127/60; PULSE 79; RESP 18; TEMP 97.5; O2SAT 97
== END 2018-06-19 16:45 | disposition home or self-care (01) ==
LOC: EDHOLD 17:23 → ED 17:23 → INTOOBSV 19:54 → OBSVTOIN 19:54 → SUATTDRO 19:54 → MED 20:20
PROVIDERS: ADMIT Emergency Medicine; ATTEND Internal Medicine